=== PATIENT | female | born 1935 | race Caucasian/White ===

== ENCOUNTER → 2023-08-04 13:31 | Outpatient (REF) | payer OTHER, SELFPAY | LOC: DHCBC HW 13:31 | PROVIDERS: ATTENDING PHYSICIAN Internal Medicine; FAMILY PHYSICIAN Family Medicine | DX: I50.22 Chronic systolic (congestive) heart failure (principal); I25.10 Atherosclerotic heart disease of native coronary artery without angina pectoris; I42.8 Other cardiomyopathies | CPT/HCPCS: 93306 ==

== ENCOUNTER 2023-08-27 23:55 | Inpatient (IN) | payer OTHER, SELFPAY ==
[2023-08-27 21:41] VITALS: BP 132/54
[2023-08-27 21:59] LABS: % Basophils 0.3 % (0-2); % Eosinophils 0.2 % (0-6); % Lymphocytes 11.1 % (20.5-51.1); % Monocytes 7.4 % (1.7-9.3); Absolute Immature Granulocytes 0.1 10^3/uL (0-0.05); Absolute Lymphocytes 1.2 10^3/uL (1.2-3.4); Absolute Monocytes 0.8 10^3/uL (0.1-0.6); Absolute Neutrophils 8.6 10^3/uL (1.4-6.5); Hematocrit 34.5 % (37.0-47.0); Hemoglobin 12.1 g/dL (12.0-16.0); Mean Corp Hgb Conc. 35.1 g/dL (33.0-37.0); Mean Corpuscular Hgb 28.8 pg (27.0-31.0); Mean Corpuscular Volume 82.1 fL (81.0-99.0); Nucleated Red Blood Cells % 0 %; Platelet Count 299 10^3/uL (130-400); Red Cell Dist. Width 13.2 % (11.5-14.5); White Blood Cell Count 10.7 10^3/uL (4.8-10.8)
[2023-08-27 22:17] LABS: ALT (SGPT) 61 U/L (0-35); AST (SGOT) 37 U/L (14-36); Albumin 3.6 g/dl (3.5-5.0); Alkaline Phosphatase 130 U/L (38-126); Blood Urea Nitrogen 32 mg/dl (7-17); Calcium 9.5 mg/dl (8.4-10.2); Carbon Dioxide 25 mmol/L (22-30); Chloride 100 mmol/L (98-107); Glucose 219 mg/dl (70-99); Lipase 370 U/L (23-300); Potassium 4.1 mmol/L (3.5-5.1); Sodium 132 mmol/L (135-145); Total Bilirubin 0.7 mg/dl (0.2-1.3); eGFR > 60.00
--- NOTE | 2023-08-27 23:26 | ED.GENMED ---
History of Present Illness
General
Chief Complaint: Abdominal Symptoms
Source: patient and family
Exam Limitations: none
Time Seen by Provider: 08/27/23 23:11
Nursing documentation reviewed up to this point in time: agreed with
Travel History
Have you had any contact with someone who has COVID-19?: No
Do you have any symptoms of coronavirus? Fever > 100 degrees, chills, cough, shortness of breath, sore throat, loss of taste or smell, muscle aches, or headache?: No
History of Present Illness
History of Present Illness:
87-year-old female presents emergency department complaining of nausea and vomiting throughout the day, episodes of coffee-ground emesis at home. Patient takes Eliquis for atrial fibrillation. Denies any abdominal pain.
Past History
Past History
ED Past Medical History: Arrthythmia, CHF, HTN, Hypercholesterolemia and NIDDM
ED Past Surgical History: Gynecological (MARIA C) and Other (bilateral knee replacement)
Social History
Tobacco: Non-smoker
Alcohol: Occasional
Drug: None
Personal:
Living: with family
Employment: Retired
Family History
Family History: Other (Noncontributory)
Review of Systems
Review of Systems
Allergies reviewed?: Yes
All Other Systems: Not applicable
Constitutional: Reports no symptoms
EENT: Reports no symptoms
Respiratory: Reports no symptoms
Cardiac: Reports no symptoms
ABD/GI: Reports vomiting and other (Coffee-ground emesis); Denies abdominal pain
: Reports no symptoms
Musculoskeletal: Reports no symptoms
Skin: Reports no symptoms
Neurological: Reports no symptoms
Endocrine: Reports no symptoms
Hematologic/Lymphatic: Reports no symptoms
Psychiatric: Reports no symptoms
Phy Exam
Physical Exam
Physical Exam:
Physical Exam
General: Afebrile
Neck: supple. no meningeal signs. normal posterior pharynx
Heart: s1/s2 regular rate and rhythm, no murmur. equal radial
pulses.
HEENT: Pupils equal round reactive to light, EOMI
Lungs: no acute respiratory distress. clear bilaterally
Abdomen: normal bowel sounds. not tender. no CVAT, rectal exam guaiac positive brown stool
Neuro: alert and oriented. no focal neurological deficits cranial nerves II through XII intact
Skin: no rash
Psychiatric: well kept. interactive and cooperative
Extremities: no edema. no calf tenderness. negative homans. good distal pulses
Course
Orders/Labs/Results
Orders:
Orders
08/27/23 21:53
Type+Screen Urgent
Complete Blood Count/With Diff Urgent
Comprehensive Metabolic Panel Urgent
Lipase Urgent
Abnormal Lab Results
08/27/23
21:53
Hct 34.5 L %
(37.0-47.0)
Abs Immat Gran (auto) 0.1 H 10^3/uL
(0-0.05)
Absolute Neuts (auto) 8.6 H 10^3/uL
(1.4-6.5)
Absolute Monos (auto) 0.8 H 10^3/uL
(0.1-0.6)
Immature Gran % 1.0 H %
(0-0.5)
Neutrophils % 80.0 H %
(42.2-75.2)
Lymphocytes % 11.1 L %
(20.5-51.1)
Sodium 132 L mmol/L
(135-145)
BUN 32 H mg/dl
(7-17)
Glucose 219 H mg/dl
(70-99)
AST 37 H U/L
(14-36)
ALT 61 H U/L
(0-35)
Alkaline Phosphatase 130 H U/L
(38-126)
Total Protein 6.0 L g/dl
(6.3-8.2)
Lipase 370 H U/L
(23-300)
08/27/23 21:53
08/27/23 21:53
Vital Signs
Initial and Last Documented VS:
Initial Vital Signs
Temp Pulse Resp BP Pulse Ox
98.3 F 69 20 132/54 97
08/27/23 21:41 08/27/23 21:41 08/27/23 21:41 08/27/23 21:41 08/27/23 21:41
Last Documented Vital Signs
Temp Pulse Resp BP Pulse Ox
98.3 F 69 20 132/54 97
08/27/23 21:41 08/27/23 21:41 08/27/23 21:41 08/27/23 21:41 08/27/23 21:41
MDM/Problems Addressed
Differential Diagnosis Includes:
Upper GI bleed, bleeding gastric ulcer
MDM/Problems Addressed:
87-year-old female with coffee-ground emesis, likely due to upper GI bleed. Had episode of normal-appearing emesis in the ED. Guaiac positive brown stool in the ED. Will start Protonix and give Zofran. Admit to hospitalist.
Chronic conditions affecting care: Arrhythmia
Acute Exacerbation and/or Progression of Chronic Illness: Arrhythmia
*Pulse Oximetry
Patient hypoxic: no
*EKG
Interpreted by ED Provider?: NA
*Diesel Fitter Mechanic Interpretation
Rate: Diesel Fitter Mechanic- N/A
*Critical Care Note
Total Time (30-74mins, 75-104mins- exclusive of procedures): Not Applicable
Data Reviewed
Review of Other/Old Records Reveals: Labs (Prior BUN 17 on 03/02/2023, prior hemoglobin 9.2 on 03/02/2023)
Source: records
Patient Management
Social determinants of health affecting care: Living situation
Discussion with other providers: Hospitalist
Escalation/DeEscalation of care consider admission/obs:
Admit not indicated
ED Attending Note
-
Portions of this chart may have been created with voice recognition software.� Occasional wrong word or��sound alike� substitutions may have occurred due to the inherent limitations of voice recognition software.
Discharge Plan
Departure
Patient Disposition: Admit
Date of Disposition: 08/27/23
Time of Disposition: 23:26
Admit to: IMU
Presentation/result/management discussed w/ accepting MD/DO: Hospitalist
Patient with high blood pressure during this ER visit?: Yes
Condition: Good
Discharge Problem:
Acute upper gastrointestinal bleeding
Prescriptions:
No Action
metformin 1,000 MG tablet
1,000 mg PO BID@0800,1700
Hold Instructions: discuss restarting with your doctors
metoprolol succinate 50 MG tablet extended release 24 hr
50 mg PO HS
torsemide 20 mg Tablet
20 mg PO DAILY Qty: 30 0RF
atorvastatin 10 MG tablet
10 mg PO QPM Qty: 30 0RF
Januvia 100 mg Tablet
100 mg PO DAILY Qty: 0 0RF
amiodarone [Pacerone] 200 mg Tablet
200 mg PO DAILY Qty: 0 0RF
Eliquis 5 mg tablet
2.5 mg PO BID
Interventions
Interventions:
*Risk Screen - Suicide Last Done: 08/27/23 21:41
*General Assessment Last Done: 08/27/23 21:41
[2023-08-27 23:35] VITALS: BMI 21.3
[2023-08-27 23:39] VITALS: BP 141/57
[2023-08-27] MEDS: ZOFRAN 4 MG IV (23:43)
--- NOTE | 2023-08-27 23:49 | HPS.HSE ---
Addendum entered and electronically signed by Rajesh Gonzalez MD 08/28/23 00:11:
Current vomitus is muddy brown colored at ER
Not coffee ground
DDx; SBO vs ileus
- AXR
- cont. NPO
Original Note:
Family Physician
-
Family Physician:
Chief Complaint
-
Nausea and coffee ground emesis
History of Present Illness
87F HX Prx AF on Eliquis, [facility] HFrEF who pw acute nausea and vomiting.
Report vomitus is coffee ground like material.
Admission Hgb is 12. HX chr anemia range between 7s to 9s.
HX small BW perforation s/p Exploratory laparotomy with small-bowel resection with primary anastomosis and abdominal washout in Feb 2023.
Medical History
Past Medical History
Past Medical History: Reports Other
Additional Past Medical History:
Prx AF on chr AC
HX Cardiomyopathy LVEF 25-30 percent.
Pulmonary hypertension.
HX diastolic heart failure.
Moderate TR.
Moderate AI.
Hypertension, multidrug.
Atrial fibrillation on amiodarone and Xarelto.
Hypercholesterolemia
T2DM
Ambulatory dysfunction, chronic rolling walker use
Past Surgical History: Reports Other
Additional Past Surgical History:
MARIA C.
Bilateral knee replacements.
Social History
Unable to obtain full social history at this time due to: Other ( Born in [place]. Resides at home with her of 65 years)
Tobacco: Non-smoker
Alcohol: None
Personal:
Living: With Family
Family History
Family History: Not pertinent
Allergies / Home Medications
Allergies reflects when Allergies were last updated in [facility].
Home Medications with original date entered in [facility]
Allergy/Medication List:
Allergies
Allergy/AdvReac Type Severity Reaction Status Date / Time
No Known Allergies Allergy Verified 08/27/23 21:41
Home Medications
metformin 1,000 mg tablet 1,000 mg PO BID@0800,1700 Diabetes 03/20/21
metoprolol succinate 50 mg tablet,extended release 24 hr 50 mg PO HS Heart Failure 03/20/21
atorvastatin 10 mg tablet 10 mg PO QPM High cholesterol #30 tabs 01/14/23
torsemide 20 mg tablet 20 mg PO DAILY Fluid retention/Swelling #30 tabs 01/14/23
amiodarone 200 mg tablet (Pacerone) 200 mg PO DAILY #0 tabs 03/02/23
apixaban 5 mg tablet (Eliquis) 2.5 mg PO BID Blood clot prevention/tx 08/27/23
potassium chloride 20 mEq tablet,extended release 20 meq PO DAILY 08/27/23
prednisone 10 mg tablet 10 mg PO DIRECTED 08/27/23
prednisone 2.5 mg tablet 7.5 mg PO Q OTHER DAY 08/27/23
Review of Systems
-
Constitutional: Reports No Symptoms
EENT: Reports No Symptoms
Respiratory: Reports No Symptoms
Cardiac: Reports No Symptoms
Abdomen/GI: Reports Nausea and Vomiting (coffee ground emesis)
: Reports No Symptoms
Musculoskeletal: Reports No Symptoms
Skin: Reports No Symptoms
Neurological: Reports No Symptoms
Endocrine: Reports No Symptoms
Hematologic/Lymphatic: Reports No Symptoms
Psych: Reports No Symptoms
Physical Exam
Vital Signs
Vital Signs
Temp Pulse Resp BP Pulse Ox
98.3 F 63 22 141/57 95
08/27/23 21:41 08/27/23 23:39 08/27/23 23:39 08/27/23 23:39 08/27/23 23:39
Physical Exam
General: No Apparent Distress and Conversant
HEENT: NormoCephalic, Anicteric and Moist mucous membranes
Respiratory: Clear; No Wheezes, Rales or Rhonchi
Cardiac: S1/S2 and Regular Rhythm
GI: Soft, Non Tender and Non Distended
Rectal: Brown (HoB POS brown stool )
Genito-urinary: Deferred by me
Musculoskeletal: Edema, Left Lower Extremity (chronic ), Edema, Right Lower Extremity (chronic ) and Other (Lt Leg > Rt leg edema - chonic )
Skin: Warm
Neuro: AO x 3
Psych: Calm and Intact Judgment/Insight
Laboratory Results
-
08/27/23 21:53
08/27/23 21:53
Laboratory Results
Total Bilirubin 0.7 mg/dl (0.2-1.3) 08/27/23 21:53
AST 37 U/L (14-36) H 08/27/23 21:53
ALT 61 U/L (0-35) H 08/27/23 21:53
Alkaline Phosphatase 130 U/L (38-126) H 08/27/23 21:53
Lipase 370 U/L (23-300) H 08/27/23 21:53
Data Reviewed
-
Lab Data: Labs Reviewed by me
Old Records: Reviewed
Impression/Plan
-
Reviewed VS: hemodynamically stable
Data
WCC 10.7
Hgb 12.1 - was 9.2 on 03/02/23
Plt 299
Na 132
BUN 32
GFR > 60
BG 220
AST 37 ALT 61 AKP 130 Lipase 370
08/04/23 ECHO
Moderately reduced LVEF 40%.
Global hypokinesis.
Aortic sclerosis without stenosis.
Moderate AR
Compared to 01/08/23: LVEF has improved from 25-30% to 40%. MR has improved from moderate to mild. PASP has improved from 41 mmHg to 26 mmHg.
Last hospitalist admission: 02/15/23 - 03/02/23
P Dx :
1. small BW perforation s/p Exploratory laparotomy with small-bowel resection with primary anastomosis and abdominal washout.
2. Postoperative ileus.
3. Acute left upper extremity PICC line-associated DVT
4. Acute on chronic HFrEF
5. Anasarca.
6. Hyponatremia.
7. VANESSA on CKD 3B.
8. Paroxysmal aAF
ASSESSMENT & PLAN
Acute coffee ground emesis vs Ileus - Current vomitus is mud like colored brown
POS HoB brown stool per SR attd
Hemodynamically stable
Current Hgb 12 seems like hemoconcentrated
HX Chr anemia - last Hgb was 9.2 in Feb 2023
- Held Eliquis
- PPI gtt
- NPO and IVF
- T & S
- Blood consented and scanned at ER
- f/u H H q6h
- GI consult
Known HX
Prx AF : cont amiodarone, held Eliquis due to GIB
HX NICM with last LVEF 40 in Jul 2023; Held Metoprolol due to acute GIB nd at risk for hypotension
Pulmonary hypertension.
HX chr HFrEF : Held Trosemide
Moderate TR. Moderate AI.
Hypertension
Hypercholesterolemia; Held statin
T2DM: Held Metformin and Sitagliptin. Add ISS low
Ambulatory dysfunction, chronic rolling walker use
DVT Px: SCD
Code: Full
IP TLM
[2023-08-28] VITALS (9 sets, daily range): BP systolic 133–157; BP diastolic 58–74; PULSE 63–103; BMI 21.3
[2023-08-28] MEDS: PROTONIX IV 80 MG IV (00:45)
[2023-08-28] MEDS: NSS 250 IV (00:45)
[2023-08-28] MEDS: PROTONIX 100 IV ×3 (00:50→18:36)
--- NOTE | 2023-08-28 02:00 | PTCARENOTE ---
Pt. admitted through E.D., AAO x 3, vs stable, NSR on monitor, pt. is a fall risk, bed alarm placed, call renner within reach.
[2023-08-28] MEDS: NSS 1000 IV ×2 (03:00→16:18)
[2023-08-28] MEDS: ZOFRAN 4 MG IV ×2 (05:33→22:20)
[2023-08-28 06:37] LABS: Hemoglobin 11.3 g/dL (12.0-16.0)
[2023-08-28 07:00] LABS: Blood Urea Nitrogen 35 mg/dl (7-17); Calcium 9.2 mg/dl (8.4-10.2); Carbon Dioxide 27 mmol/L (22-30); Chloride 101 mmol/L (98-107); Estimated Creatinine Clearance 30 ml/min; Glucose 215 mg/dl (70-99); Potassium 4.4 mmol/L (3.5-5.1); Sodium 134 mmol/L (135-145); eGFR 54.53
[2023-08-28 08:10] LABS: Glucose - Point of Care 225 mg/dl (70-99)
[2023-08-28] MEDS: PACERONE 200 MG PO (09:04)
[2023-08-28 09:31] LABS: Glycohemoglobin (HgbA1c) 7.6 % (4.0-5.6)
[2023-08-28] MEDS: NOVOLOG FLEXPEN-LOW RESISTANCE 2 UNITS SC ×2 (09:32→12:38)
[2023-08-28 10:32] LABS: ALT (SGPT) 56 U/L (0-35); AST (SGOT) 33 U/L (14-36); Albumin 3.3 g/dl (3.5-5.0); Alkaline Phosphatase 117 U/L (38-126); Direct Bilirubin 0.1 mg/dl (0.0-0.4); Total Bilirubin 0.6 mg/dl (0.2-1.3); Total Protein 5.5 g/dl (6.3-8.2)
--- NOTE | 2023-08-28 11:20 | CON.GI ---
Addendum entered and electronically signed by Terrence Gonzalez MD 08/28/23 13:55:
I saw and examined the patient.
The SPEECH THERAPY ASSISTANT or PA's note was reviewed and I agree with the note.
Comment: 87yo female admitted with n/v. She had BM yesterday, but no BM or flatus since then. OBS series shows constipation but no obstruction. She was admitted for SB perforation due to diverticulum and had ex lap and SB resection in February
2022. No problems after the surgery reported. Vomitus was dark brown and foul smelling
REC:
Getting milk and molasses enema
Await resumption of bowel function
If further vomiting, place NGT for decompression
Consider follow up OBS series or CT scan if not improving
Likely ileus, PSBO possibly related to adhesions
Original Note:
Consultation
-
Date/Time Consultation Requested: 08/28/23 0203
Date/Time Consultation Performed: 08/28/23 1125
Requesting Provider: Dr. Gonzalez
Performing Provider: Dr. Gonzalez/JANAY Byrne
Reason for Consultation: nausea/coffee ground emesis
Medical History
Chief Complaint / HPI
Chief Complaint: n/v
History of Present Illness:
87-year-old female with past medical history of hypertension, hyperlipidemia, diabetes, paroxysmal A-fib currently on Eliquis last dose 08/27/2023 am, CHF, small bowel perforation from small bowel diverticulum with ex lap and small bowel resection
with primary anastomosis and abdominal washout in February 2023 who presents to the emergency room with acute episodes of nausea and vomiting. Asked to evaluate for the same as well as brown vomitus. The patient states that she took her last dose
of Eliquis yesterday morning. Patient is also on Prednisone every other day for unknown inflammatory process. She ate breakfast which consisted of cornflakes and a half a banana. She states that yesterday afternoon approximately 3 PM she had acute
onset of nausea and vomiting. She states that she vomited a large amount of thick brown liquid which was foul-smelling. She then had a second episode again with brown thick smelling foul vomitus. At that point she came to the emergency room. She
states she had another episode there and another small episode overnight. She is now having abdominal cramping which she did not have prior. She states she did have a large formed brown bowel movement in the toilet yesterday. She is not passing
flatus. She is not having any belching. The patient denies any fevers, chills, melena, hematochezia, dysphagia or odynophagia. She denies any early satiety or unintentional weight loss. She denies eating anything raw, spoiled. She denies any
recent sick contacts. She denies any recent travel. She denies any changes in medications. Abdominal x-ray from today shows moderate amount of gas in nondilated loops of bowel. No bowel dilatation to suggest obstruction. No free intraperitoneal
air. Sutures present in mid abdomen and pelvis. Large amount of feces throughout colon and rectum suggesting possible constipation. Patient's WBC is 10.7, hemoglobin is 11.3 down from 12.1, sodium 134, potassium 4.4, BUN 35, glucose 215, calcium
9.2 total bilirubin 0.6, direct bili 0.1, AST 33 down from 37, ALT 56 down from 61, alk phos 117 down from 130, lipase 370. Rectal exam performed in the ER was brown stool but was OB positive. Patient had episode of normal appearing emesis in the ER
per records.
Past Medical History
Past Medical History: Arrhythmias (Afib), CHF, HTN, Hypercholesterolemia, NIDDM and Other (Small bowel perforation from small bowel diverticulum, pulm HTN)
Past Surgical History: Other (open abd hysterectomy, ex lap and small bowel resection with primary anastomosis and abdominal washout in February 2023)
Social History
Tobacco: Non-Smoker
Alcohol: None
Drug: None
Personal:
Living: With Family
Family History
Family History: Other (no family history gastrointestinal malignancies or IBD)
Allergies / Home Medications
Allergy/AdvReac Type Severity Reaction Status Date / Time
No Known Allergies Allergy Verified 08/27/23 21:41
Medication Instructions Recorded
metformin 1,000 mg tablet 1,000 mg PO BID@0800,1700 Diabetes 03/20/21
metoprolol succinate 50 mg 50 mg PO HS Heart Failure 03/20/21
tablet,extended release 24 hr
atorvastatin 10 mg tablet 10 mg PO QPM High cholesterol #30 01/14/23
tabs
torsemide 20 mg tablet 20 mg PO DAILY Fluid 01/14/23
retention/Swelling #30 tabs
amiodarone 200 mg tablet (Pacerone) 200 mg PO DAILY #0 tabs 03/02/23
apixaban 5 mg tablet (Eliquis) 2.5 mg PO BID Blood clot 08/27/23
prevention/tx
potassium chloride 20 mEq 20 meq PO DAILY Electrolyte 08/27/23
tablet,extended release Repletion
prednisone 10 mg tablet 10 mg PO DIRECTED 08/27/23
prednisone 2.5 mg tablet 7.5 mg PO Q OTHER DAY 08/27/23
Review of Systems
-
All other systems: A 12 pt ROS was Negative except as stated above in HPI
Vital Signs
Temp Pulse Resp BP Pulse Ox
97.9 F 63 16 155/63 96
08/28/23 07:30 08/28/23 09:04 08/28/23 07:30 08/28/23 09:04 08/28/23 07:30
Physical Exam
Exam
General: No Apparent Distress
HEENT: Anicteric
Respiratory: Clear
Cardiac: Irregular Rhythm
GI: Soft, Non Tender, Non Distended and Distended (mildly distended)
Rectal: Hem Positive (brown OB pos stool per ER)
Skin: Warm and Dry
Neuro: AO x 3
Psych: Calm
Results
WBC 10.7 10^3/uL (4.8-10.8) 08/27/23 21:53
Hgb 11.3 g/dL (12.0-16.0) L 08/28/23 05:56
Hct 32.0 % (37.0-47.0) L 08/28/23 05:56
MCV 82.1 fL (81.0-99.0) 08/27/23 21:53
Plt Count 299 10^3/uL (130-400) 08/27/23 21:53
Absolute Neuts (auto) 8.6 10^3/uL (1.4-6.5) H 08/27/23 21:53
Sodium 134 mmol/L (135-145) L 08/28/23 05:56
Potassium 4.4 mmol/L (3.5-5.1) 08/28/23 05:56
Chloride 101 mmol/L (98-107) 08/28/23 05:56
Carbon Dioxide 27 mmol/L (22-30) 08/28/23 05:56
BUN 35 mg/dl (7-17) H 08/28/23 05:56
Creatinine 1.0 mg/dL (0.6-1.0) 08/28/23 05:56
Calcium 9.2 mg/dl (8.4-10.2) 08/28/23 05:56
Total Bilirubin 0.6 mg/dl (0.2-1.3) 08/28/23 05:56
AST 33 U/L (14-36) 08/28/23 05:56
ALT 56 U/L (0-35) H 08/28/23 05:56
Alkaline Phosphatase 117 U/L (38-126) 08/28/23 05:56
Lipase 370 U/L (23-300) H 08/27/23 21:53
Diagnostic Image Results:
Abd XR:
FINDINGS:
Supine and left lateral decubitus views of the abdomen were obtained
There is a moderate amount of gas in nondilated loops of bowel.
There is no bowel dilatation to suggest obstruction.
There is no free intraperitoneal air
Sutures are present in the mid abdomen and pelvis
There is thoracolumbar scoliosis with multilevel degenerative disc disease
There is moderate-large amount of feces throughout the colon and rectum suggesting possible constipation
Prior GI Procedures:
EGD: none
Colonoscopy:none
Assessment / Plan
-
87-year-old female with past medical history of hypertension, hyperlipidemia, diabetes, paroxysmal A-fib currently on Eliquis last dose 08/27/2023 am, CHF, small bowel perforation from small bowel diverticulum with ex lap and small bowel resection
with primary anastomosis and abdominal washout in February 2023 who presents to the emergency room with acute episodes of nausea and vomiting. Asked to evaluate for the same as well as brown vomitus. The patient states that she took her last dose
of Eliquis yesterday morning. Patient is also on Prednisone every other day for unknown inflammatory process. Abdominal x-ray from today shows moderate amount of gas in nondilated loops of bowel. No bowel dilatation to suggest obstruction. No
free intraperitoneal air. Sutures present in mid abdomen and pelvis. Large amount of feces throughout colon and rectum suggesting possible constipation. Patient's WBC is 10.7, hemoglobin is 11.3 down from 12.1, sodium 134, potassium 4.4, BUN 35,
glucose 215, calcium 9.2 total bilirubin 0.6, direct bili 0.1, AST 33 down from 37, ALT 56 down from 61, alk phos 117 down from 130, lipase 370. Rectal exam performed in the ER was brown stool but was OB positive. Patient had episode of normal
appearing emesis in the ER per records. Patient is currently on a Protonix drip. She has Zofran available to her. Milk molasses enema has already been ordered by medicine attending. The patient remains n.p.o. at this time.
Impression:
Nausea and Vomiting
Constipation on Imaging
OB positive Brown stool with possible coffee ground emesis?
Afib on Eliquis, last dose 08/27/23 am
Plan:
-NPO for now
-Continue Protonix gtt
-Continue Zofran prn
-Agree with Milk and Molasses Enema
-Trend CBC, BMP
-If with increased abd pain then obtain abdominal imaging to r/o obstruction
-Further recommendations about Endoscopic procedures to be fothcoming
Data Reviewed
-
Radiology: Report Reviewed by me
Old Records: Reviewed
-
-
Thank you for consultation and allowing me to participate in the patient's care. Please call the monotypist GI physician during the after hours with any questions or concerns.
[2023-08-28 12:31] LABS: Glucose - Point of Care 207 mg/dl (70-99)
--- NOTE | 2023-08-28 14:49 | W.PN.HOSP.TC ---
Today's Communication/Plan
-
Enema
NPO till she has a bowel movement and feels better in terms of vomiting
Medicines restarted
Assessment / Plan
Assessment / Plan
87-year-old female on Eliquis admitted with nausea vomiting
Feels okay. Patient was getting enema
No abdominal pain
Cardiovascular system S1-S2 appreciated
Chest clear to auscultation
Abdomen soft slightly distended
If continues to have vomiting may need NG tube/obstruction series
# Coffee-ground vomitus likely secondary to ileus
Constipation , hold Eliquis
Give enema
# History of small bowel perforation with ex small bowel resection with primary anastomosis and abdominal washout February 2023
# Mild hyponatremia-likely hypovolemic
# Elevated LFTs-follow
# Slightly elevated lipase-likely secondary to small bowel obstruction
# Paroxysmal atrial fibrillation on Eliquis and metoprolol as outpatient
Also on amiodarone 200 mg daily
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
Echo 08/04/2023-moderately reduced ejection fraction 40%. Global hypokinesis. Aortic sclerosis without stenosis. Moderate AI
On metoprolol, torsemide as outpatient
# Pulmonary hypertension
# Valvular heart disease-moderate TR, moderate AI
# Multidrug-resistant hypertension
Was on metoprolol
# CKD stage III
# Hyperlipidemia-patient was on atorvastatin
# Diabetes-was on metformin thousand twice daily
Check hemoglobin A1c
Accu-Cheks and sliding scale coverage
# Left upper extremity PICC line associated DVT in the past
# Ambulatory dysfunction-uses a walker
Spinal stenosis
# Migraines
# DVT prophylaxis
# Full code
D/W RN
D/W GI
Unclear why she is on prednisone
Called . Went to message. Left message
Anticipated Discharge: 24 - 48 hours
Subjective/Interval History
-
Date of Service: August 28, 2023
Objective Data
-
Labs:
Laboratory Results
08/28/23
05:56
Hgb 11.3 L
Hct 32.0 L
Sodium 134 L
Potassium 4.4
Chloride 101
Carbon Dioxide 27
BUN 35 H
Creatinine 1.0
Glucose 215 H
Calcium 9.2
Total Bilirubin 0.6
AST 33
ALT 56 H
Alkaline Phosphatase 117
Vital Signs:
Vital Signs
Temp Pulse Resp BP Pulse Ox
97.9 F 69 14 143/61 94
08/28/23 11:35 08/28/23 11:35 08/28/23 11:35 08/28/23 11:35 08/28/23 11:35
I&O
08/27/23 08/28/23 08/29/23
06:59 06:59 06:59
Intake Total 120 / 120
Balance 120 / 120
[2023-08-28 16:58] LABS: Glucose - Point of Care 178 mg/dl (70-99)
[2023-08-28] MEDS: NOVOLOG FLEXPEN-LOW RESISTANCE 300 UNITS SC (17:54)
[2023-08-28] MEDS: LIPITOR 10 MG PO (17:54)
[2023-08-28] MEDS: DELTASONE 5 MG PO (18:40)
[2023-08-28] MEDS: TOPROL XL 50 MG PO (21:13)
[2023-08-28 21:30] LABS: Glucose - Point of Care 182 mg/dl (70-99)
[2023-08-29 03:00] VITALS: BP 124/49
[2023-08-29] MEDS: NSS 1000 IV (03:05)
[2023-08-29] MEDS: PROTONIX 100 IV ×2 (05:18→15:39)
[2023-08-29 05:59] LABS: Hematocrit 29.3 % (37.0-47.0); Hemoglobin 10.4 g/dL (12.0-16.0); Mean Corp Hgb Conc. 35.5 g/dL (33.0-37.0); Mean Corpuscular Hgb 29.5 pg (27.0-31.0); Mean Corpuscular Volume 83.2 fL (81.0-99.0); Platelet Count 239 10^3/uL (130-400); Red Blood Cell Count 3.52 10^6/uL (4.20-5.40); Red Cell Dist. Width 13.4 % (11.5-14.5)
[2023-08-29 06:00] VITALS: BMI 19.8
[2023-08-29 06:27] LABS: ALT (SGPT) 51 U/L (0-35); AST (SGOT) 33 U/L (14-36); Albumin 2.8 g/dl (3.5-5.0); Alkaline Phosphatase 94 U/L (38-126); Blood Urea Nitrogen 37 mg/dl (7-17); Calcium 8.7 mg/dl (8.4-10.2); Carbon Dioxide 25 mmol/L (22-30); Chloride 103 mmol/L (98-107); Direct Bilirubin 0.1 mg/dl (0.0-0.4); Estimated Creatinine Clearance 30 ml/min; Glucose 166 mg/dl (70-99); Potassium 3.9 mmol/L (3.5-5.1); Sodium 137 mmol/L (135-145); Total Bilirubin 0.9 mg/dl (0.2-1.3); Total Protein 4.9 g/dl (6.3-8.2); eGFR 54.53
[2023-08-29 06:54] LABS: TSH < 0.02 uIU/ml (0.47-4.68)
[2023-08-29 07:42] VITALS: BP 155/65
[2023-08-29 07:54] LABS: Glucose - Point of Care 172 mg/dl (70-99)
[2023-08-29] MEDS: ZOFRAN 4 MG IV (09:25)
[2023-08-29] MEDS: DELTASONE 10 MG PO (09:27)
[2023-08-29] MEDS: PACERONE 200 MG PO (09:31)
[2023-08-29] MEDS: NOVOLOG FLEXPEN-LOW RESISTANCE 1 UNITS SC ×2 (09:32→18:43)
--- NOTE | 2023-08-29 10:46 | CM ---
Reviewed the chart notes and spoke with the patient at the bedside. The patient resides with her spouse in a two story home with two steps to enter. The patient has a rolling walker, wheelchair, shower chair, and shower grab bar. The patient is
current with [facility] and has been to [facility] in the past. The patient confirmed her pharmacy of choice is the [facility]. The patient anticipates being discharged to home with resumption of [facility]. CM continues to be
available to patient/family and is monitoring medical plan for needs at discharge.
Plan: Discharge to home with resumption of VN services.
[2023-08-29 11:35] VITALS: BP 126/52
[2023-08-29 11:42] LABS: Glucose - Point of Care 220 mg/dl (70-99)
[2023-08-29] MEDS: NOVOLOG FLEXPEN-LOW RESISTANCE 2 UNITS SC (11:45)
--- NOTE | 2023-08-29 12:18 | PTCARENOTE ---
Assumed care of pt from previous nurse. Pt denies pain. Pt provided zofran for n/v, vomited x's 1 light brown emesis. Pt call renner is within reach, pt rings fabiano. will cont to monitor. Pt abdomen tender, soft, hypoactive bowel sounds.
[2023-08-29 13:19] VITALS: BMI 19.8
[2023-08-29 15:37] VITALS: BP 159/96
[2023-08-29 16:36] LABS: Glucose - Point of Care 176 mg/dl (70-99)
--- NOTE | 2023-08-29 16:36 | W.PN.GI.CBS2 ---
Today's Communication / Plan
-
Pt reports no BM/flatus
Hypoactive bowel sounds but present
BMs recorded as mucoid and liquid in chart
Check repeat OBS series to exclude evolving SBO given her recent surgery last fall for perforated diverticulum
Advance diet after bowel function resumes
Assessment / Plan
-
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
anastomosis and abdominal washout in February 2023 who presents to the emergency room with acute episodes of nausea and vomiting. Asked to evaluate for the same as well as brown vomitus. Patient is also on Prednisone every other day for unknown
inflammatory process. Abdominal x-ray shows moderate amount of gas in nondilated loops of bowel. Large amount of feces throughout colon and rectum suggesting possible constipation. Rectal exam performed in the ER was brown stool but was OB
positive. Patient had episode of normal appearing emesis in the ER per records. Patient is currently on a Protonix drip. She has Zofran available to her. Milk molasses enema has already been ordered by medicine attending. The patient remains
n.p.o. at this time.
08/28/23 AXR- moderate-large amount feces throughout colon and rectum.
Impression:
Nausea and Vomiting
Constipation on Imaging
OB positive Brown stool with possible coffee ground emesis?
Afib on Eliquis, last dose 08/27/23 am
Subjective
Subjective
Date of Service: August 29, 2023
No BM, no flatus. She had small amount of bilious emesis.
Objective
Data Reviewed
Laboratory Data:
Laboratory Results
08/29/23 05:42
08/29/23 05:42
Laboratory Results
Total Bilirubin 0.9 mg/dl (0.2-1.3) 08/29/23 05:42
AST 33 U/L (14-36) 08/29/23 05:42
ALT 51 U/L (0-35) H 08/29/23 05:42
Alkaline Phosphatase 94 U/L (38-126) 08/29/23 05:42
Lipase 370 U/L (23-300) H 08/27/23 21:53
Vital Signs and I&O:
Vital Signs
Temp Pulse Resp BP Pulse Ox
98.3 F 72 16 159/96 95
08/29/23 15:37 08/29/23 15:37 08/29/23 15:37 08/29/23 15:37 08/29/23 15:37
I&O
08/28/23 08/29/23 08/30/23
06:59 06:59 06:59
Intake Total 120 / 120 500 / 500
Output Total 200 / 200
Balance 120 / 120 300 / 300
Physical Exam
Physical Exam
GI: Soft, Non Distended, Tender and Normal Bowel Sounds (hypoactive but present)
--- NOTE | 2023-08-29 16:37 | W.PN.HOSP.TC ---
Today's Communication/Plan
-
X-ray of the abdomen to r/o obstruction
Will give mag citrate if neg
If not may need another enema
Assessment / Plan
Assessment / Plan
87-year-old female on Eliquis admitted with nausea vomiting
No abdominal pain
Cardiovascular system S1-S2 appreciated
Chest clear to auscultation
Abdomen soft slightly distended
# Coffee-ground vomitus likely secondary to ileus
Constipation , hold Eliquis
Not much luck with enema
X-ray of the abdomen.
If no obstruction we will try mag citrate
# Mild hyponatremia-likely hypovolemic. Better
# Elevated LFTs-follow
# Slightly elevated lipase not related to pancreatitis
# Paroxysmal atrial fibrillation on Eliquis and metoprolol as outpatient
Also on amiodarone 200 mg daily
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
Echo 08/04/2023-moderately reduced ejection fraction 40%. Global hypokinesis. Aortic sclerosis without stenosis. Moderate AI
On metoprolol, torsemide as outpatient
# Low TSH. Repeat TSH with reflex to T4
# Patient is on prednisone for a skin disease-type unclear
# Pulmonary hypertension
# Valvular heart disease-moderate TR, moderate AI
# Multidrug-resistant hypertension
Was on metoprolol
# CKD stage III
# Hyperlipidemia-patient was on atorvastatin
# Diabetes-was on metformin thousand twice daily
Hemoglobin A1c 7.6
Accu-Cheks and sliding scale coverage

# History of small bowel perforation with ex small bowel resection with primary anastomosis and abdominal washout February 2023
# Pulmonary hypertension
# Valvular heart disease-moderate TR, moderate AI
# Left upper extremity PICC line associated DVT in the past
# Ambulatory dysfunction-uses a walker
Spinal stenosis
# Migraines
# Hypoalbuminemia
# DVT prophylaxis
# Full code
D/W RN
Discussed with at bedside
Anticipated Discharge: 24 - 48 hours
Subjective/Interval History
-
Date of Service: August 29, 2023
Objective Data
-
Labs:
Laboratory Results
08/29/23
05:42
WBC 9.0
Hgb 10.4 L
Hct 29.3 L
Plt Count 239 D
Sodium 137
Potassium 3.9
Chloride 103
Carbon Dioxide 25
BUN 37 H
Creatinine 1.0
Glucose 166 H
Calcium 8.7
Total Bilirubin 0.9
AST 33
ALT 51 H
Alkaline Phosphatase 94
Vital Signs:
Vital Signs
Temp Pulse Resp BP Pulse Ox
98.3 F 72 16 159/96 95
08/29/23 15:37 08/29/23 15:37 08/29/23 15:37 08/29/23 15:37 08/29/23 15:37
I&O
08/28/23 08/29/23 08/30/23
06:59 06:59 06:59
Intake Total 120 / 120 500 / 500
Output Total 200 / 200
Balance 120 / 120 300 / 300
[2023-08-29] MEDS: LIPITOR 10 MG PO (18:54)
[2023-08-29 20:00] VITALS: BP 153/60
[2023-08-29 21:52] LABS: Glucose - Point of Care 214 mg/dl (70-99)
[2023-08-29] MEDS: TOPROL XL 50 MG PO (22:01)
[2023-08-29] MEDS: CITROMA 300 ML PO (22:01)
--- NOTE | 2023-08-29 23:18 | PTCARENOTE ---
Pt given Mg citrate and vomited it soon afterwards. Pt seemed to have drank it to fast.
[2023-08-29 23:23] VITALS: BP 151/61
[2023-08-30 00:10] LABS: Glucose - Point of Care 209 mg/dl (70-99)
[2023-08-30] MEDS: NOVOLOG FLEXPEN-LOW RESISTANCE 2 UNITS SC ×3 (00:13→17:36)
[2023-08-30] MEDS: PROTONIX 100 IV (02:34)
[2023-08-30] MEDS: NSS 1000 IV ×2 (02:36→16:59)
[2023-08-30 02:53] VITALS: BP 149/57
[2023-08-30 05:57] VITALS: BMI 19.8
[2023-08-30 06:46] LABS: Glucose - Point of Care 206 mg/dl (70-99)
[2023-08-30 07:28] LABS: Hemoglobin 10.8 g/dL (12.0-16.0); Mean Corp Hgb Conc. 34.8 g/dL (33.0-37.0); Mean Corpuscular Hgb 29.5 pg (27.0-31.0); Mean Corpuscular Volume 84.7 fL (81.0-99.0); Mean Platelet Volume 9.2 fL (7.4-10.4); Platelet Count 257 10^3/uL (130-400); Red Blood Cell Count 3.66 10^6/uL (4.20-5.40); Red Cell Dist. Width 13.6 % (11.5-14.5); White Blood Cell Count 9.3 10^3/uL (4.8-10.8)
[2023-08-30 07:51] VITALS: BP 140/54
[2023-08-30 07:58] LABS: Blood Urea Nitrogen 47 mg/dl (7-17); Calcium 8.8 mg/dl (8.4-10.2); Carbon Dioxide 23 mmol/L (22-30); Chloride 104 mmol/L (98-107); Estimated Creatinine Clearance 25 ml/min; Glucose 204 mg/dl (70-99); Potassium 3.3 mmol/L (3.5-5.1); Sodium 141 mmol/L (135-145); eGFR 43.81
[2023-08-30 08:17] LABS: TSH Reflex To Free T4 < 0.02 uIU/ml (0.47-4.68)
[2023-08-30 08:44] LABS: Free T4 4.16 ng/dl (0.78-2.19)
[2023-08-30] MEDS: MIRALAX 17 GRAMS PO (09:19)
[2023-08-30] MEDS: PACERONE 200 MG PO (09:19)
[2023-08-30] MEDS: COLACE 100 MG PO (09:19)
[2023-08-30] MEDS: SENOKOT 8.59999999999999964 MG PO (09:20)
[2023-08-30 11:22] LABS: Glucose - Point of Care 197 mg/dl (70-99)
[2023-08-30] MEDS: NOVOLOG FLEXPEN-LOW RESISTANCE 1 UNITS SC (11:37)
[2023-08-30 11:38] VITALS: BP 141/68
--- NOTE | 2023-08-30 11:48 | PTCARENOTE ---
Pt given milk and molasses enema this am around 0930. Pt tolerated fairly well with return of a few pieces of formed stool. Ana Maria Goldman CONTRACTOR BUYER aware.
--- NOTE | 2023-08-30 12:02 | W.PN.GI.CBS2 ---
Addendum entered and electronically signed by Terrence Gonzalez MD 08/30/23 12:31:
I saw and examined the patient.
The TECHNICAL BUSINESS ANALYST or PA's note was reviewed and I agree with the note.
Comment: Had small output after enema
ABD soft NTND
OBS series- non-specific bowel gas pattern without signs of obstruction. Mild/moderate diffuse colonic stool burden
REC:
Try clears
Continue miralax BID, senna
Consider dulcolax suppository or PO next
Await return of bowel function
No signs of bleeding
Original Note:
Today's Communication / Plan
-
Clears
Increase bowel regimen
Assessment / Plan
-
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
anastomosis and abdominal washout in February 2023 who presents to the emergency room with acute episodes of nausea and vomiting. Asked to evaluate for the same as well as brown vomitus. Patient is also on Prednisone every other day for unknown
inflammatory process. Abdominal x-ray shows moderate amount of gas in nondilated loops of bowel. Large amount of feces throughout colon and rectum suggesting possible constipation. Rectal exam performed in the ER was brown stool but was OB
positive. Patient had episode of normal appearing emesis in the ER per records. Patient is currently on a Protonix drip. She has Zofran available to her. Milk molasses enema has already been ordered by medicine attending. The patient remains
n.p.o. at this time.
08/28/23 AXR- moderate-large amount feces throughout colon and rectum.
Impression:
Nausea and Vomiting
Constipation on Imaging
OB positive Brown stool with possible coffee ground emesis?
Afib on Eliquis, last dose 08/27/23 am
Plan:
-Continue bowel regimen, will increase MiraLAX to twice daily
-Start clear liquids
-Discussed with patient that if she develops any nausea to stop p.o. immediately notify nursing
-If with increased abdominal distention, bloating or pain will repeat imaging
Subjective
Subjective
Date of Service: August 30, 2023
Patient with milk of molasses enema with small amount of stool expulsion. Patient without any nausea or vomiting. She has not trialed any clear liquids as of yet. She is tolerating oral medications including MiraLAX. She denies any abdominal
pain.
Objective
Data Reviewed
Laboratory Data:
Laboratory Results
08/30/23 07:10
08/30/23 07:10
Laboratory Results
Total Bilirubin 0.9 mg/dl (0.2-1.3) 08/29/23 05:42
AST 33 U/L (14-36) 08/29/23 05:42
ALT 51 U/L (0-35) H 08/29/23 05:42
Alkaline Phosphatase 94 U/L (38-126) 08/29/23 05:42
Lipase 370 U/L (23-300) H 08/27/23 21:53
Vital Signs and I&O:
Vital Signs
Temp Pulse Resp BP Pulse Ox
97.9 F 88 16 141/68 96
08/30/23 11:38 08/30/23 11:38 08/30/23 11:38 08/30/23 11:38 08/30/23 11:38
I&O
08/29/23 08/30/23 08/31/23
06:59 06:59 06:59
Intake Total 500 / 500 1260 / 1260
Output Total 200 / 200 780 / 780
Balance 300 / 300 480 / 480
Physical Exam
Physical Exam
HEENT: Anicteric
Cardiology: Normal Sinus Rhythm
Pulmonary: Clear
GI: Soft, Non Distended, Non Tender and Normal Bowel Sounds (Hypoactive but present)
Neuro: Non Focal
--- NOTE | 2023-08-30 13:13 | PN.CDI ---
CDI
- -
CDI:
Physician Documentation Request
Admit Date: 08/27/23 23:55
Dear Doctor Ce,
Please review the following and provide your response in the progress notes.
Clinical Indicators:
- 08/28 Eyeglass Lens Cutter note indicates severe protein calorie malnutrition
- Unintentional weight loss >10% in 6 months
- Nutrient intake </=75% estimated need, >/= 1 month
Based on the information, which of the following most accurately represents the patient's nutritional status?
Severe protein calorie malnutrition
Other (please specify)
[place] Criteria ([facility] 2017)
2 or more criteria must be present for either
non severe or severe malnutrition
Note that the criteria differs related to the
presence of an acute or chronic illness
Acute Illness Chronic Illness
Energy Intake Non Severe: <75% for >7 days Non Severe: <75% for >1 month
Severe: <50% for >5 days Severe: <75% for >1 month
Weight Loss Non Severe: 1-2% over 1 week Non Severe: 5% over 1 month
5% over 1 month 7.5% over 3 months
7.5% over 3 months 10% over 6 months
1 year N/A 20% over 1 year
Severe: >2% over 1 week Severe: >5% over 1 month
>5% over 1 month >7.5% over 3 months
>7.5% over 3 months >10% over 6 months
1 year N/A >20% over 1 year
Body Fat Non Severe: Mild Decrease Non Severe: Mild Loss
Severe: Moderate Decrease Severe: Severe Loss
Muscle Mass Non Severe: Mild Decrease Non Severe: Mild Loss
Severe: Moderate Decrease Severe: Severe Loss
Fluid Accumulation Non Severe: Mild Accumulation Non Severe: Mild Accumulation
Severe: Moderate to severe Severe: Moderate to severe
accumulation accumulation
Reduced Vision Teacher Strength Non Severe: N/A Non Severe: N/A
Severe: Measurably reduced Severe: Measurably reduced
Additional criteria that can be used to Determine if Mild or Moderate Malnutrition ([employer]ck Manual 2018)
Mild Moderate Severe
Albumin gm/dl <3.0 gm/dl <2.5 gm/dl <2.0 gm/dl
Pre Albumin mg/dl <15 gm/dl <10 mg/dl <5.0 mg/dl
BMI <18.5 <17 <16
Use of terms such as suspected, likely, concern for, or probable (associated with a specific diagnosis that is being evaluated, monitored, or treated as if it exists) are acceptable and can be coded in the inpatient setting, when documented at the
time of discharge.
Thank you,
Megan Amezquita RN
CDI Specialist
Please use your independent medical judgment in providing your response.
[2023-08-30] MEDS: KCL 20 MEQ PO (13:32)
[2023-08-30] MEDS: NSS 500 IV (13:32)
[2023-08-30] MEDS: ZOFRAN 4 MG IV (13:38)
--- NOTE | 2023-08-30 14:37 | PTCARENOTE ---
Pt c/o nausea, vomited fecal smelling emesis. Zofran 4mg IV given at [address] Encinas aware and will continue to monitor.
--- NOTE | 2023-08-30 14:59 | W.PN.HOSP.TC ---
Addendum entered and electronically signed by Jeff Encinas MD 08/30/23 18:03:
Per start pt on prednisone 20 mg daily and methimazole 20 mg daily and see endo in 2 weeks.
Since NPO Give methimazole rectally .same dose.
Also steroids IV
will do Decadron 3 mg daily for now.
Original Note:
Today's Communication/Plan
-
Bowel regimen
Assessment / Plan
Assessment / Plan
87-year-old female on Eliquis admitted with nausea vomiting
No abdominal pain, Has nausea
Cardiovascular system S1-S2 appreciated
Chest clear to auscultation
Abdomen soft slightly distended
Obstruction status-retrocardiac airspace disease reflect atelectasis. Nonspecific bowel gas pattern without evidence of obstruction. Mild to moderate diffuse colonic stool burden
# Coffee-ground vomitus likely secondary to ileus
Constipation ,restart eliquis per discussion with GI
Had a small BM
Mag citrate given yesterday
One more enema given today
Continue bowel regimen
Vomited once. Some feculent smell per nursing however x-ray without any obstruction.
# Mild hyponatremia-likely hypovolemic. Resolved
# Hypokalemia-replace
# Elevated LFTs-follow
# Slightly elevated lipase not related to pancreatitis
# Abnormal thyroid function test-I have reached out to endocrinology to see if this needs treatment especially since patient is on amiodarone.
# Paroxysmal atrial fibrillation on Eliquis and metoprolol as outpatient
Also on amiodarone 200 mg daily
Continue metoprolol and Eliquis
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
Echo 08/04/2023-moderately reduced ejection fraction 40%. Global hypokinesis. Aortic sclerosis without stenosis. Moderate AI
On metoprolol, torsemide as outpatient-Hold Torsamide
# Hypertension-On metoprolol
# Hyperlipidemia-patient was on atorvastatin
# Diabetes-was on metformin thousand twice daily
Hemoglobin A1c 7.6
Accu-Cheks and sliding scale coverage
# VANESSA on CKD stage III

# Patient is on prednisone for Bullous Pemphigoid
10 mg alternating with 5 mg every other day
# Pulmonary hypertension
# Valvular heart disease-moderate TR, moderate AI
# History of small bowel perforation with ex small bowel resection with primary anastomosis and abdominal washout February 2023
# Pulmonary hypertension
# Valvular heart disease-moderate TR, moderate AI
# Left upper extremity PICC line associated DVT in the past
# Ambulatory dysfunction-uses a walker
Spinal stenosis
# Migraines
# Hypoalbuminemia
# DVT prophylaxis
# Full code
D/W RN
Discussed with at bedside
Discussed with GI
Left a message for endocrine
Anticipated Discharge: 24 - 48 hours
Subjective/Interval History
-
Date of Service: August 30, 2023
Objective Data
-
Labs:
Laboratory Results
08/30/23
07:10
WBC 9.3
Hgb 10.8 L
Hct 31.0 L
Plt Count 257
Sodium 141
Potassium 3.3 L
Chloride 104
Carbon Dioxide 23
BUN 47 H
Creatinine 1.2 H
Glucose 204 H
Calcium 8.8
Vital Signs:
Vital Signs
Temp Pulse Resp BP Pulse Ox
97.9 F 88 16 141/68 96
08/30/23 11:38 08/30/23 11:38 08/30/23 11:38 08/30/23 11:38 08/30/23 11:38
I&O
08/29/23 08/30/23 08/31/23
06:59 06:59 06:59
Intake Total 500 / 500 1260 / 1260
Output Total 200 / 200 780 / 780
Balance 300 / 300 480 / 480
--- NOTE | 2023-08-30 15:54 | W.PN.UPDATE ---
Update Note
Progress Note Update
Patient has been vomiting-vomited twice
Mild feculent smell to the vomitus
Given the x-ray does not show obstruction we will place an NG tube
Eliquis changed to heparin drip
Other medicines can be given and tube clamped
Discontinue metformin
IV hydration
We can try the Dulcolax rectal
[2023-08-30 15:55] VITALS: BP 156/63
--- NOTE | 2023-08-30 16:16 | CM ---
Chart reviewed and plan is to home when stable with spouse, will wait on PT/OT evaluations to assist with discharge planning for patient.
Plan; To follow with patient progress for discharge planning needs.
[2023-08-30 16:18] LABS: Hematocrit 32.3 % (37.0-47.0); Hemoglobin 11.2 g/dL (12.0-16.0); Mean Corp Hgb Conc. 34.7 g/dL (33.0-37.0); Mean Corpuscular Hgb 29.1 pg (27.0-31.0); Mean Corpuscular Volume 83.9 fL (81.0-99.0); Mean Platelet Volume 9.1 fL (7.4-10.4); Platelet Count 279 10^3/uL (130-400); Red Blood Cell Count 3.85 10^6/uL (4.20-5.40); Red Cell Dist. Width 13.5 % (11.5-14.5); White Blood Cell Count 9.3 10^3/uL (4.8-10.8)
--- NOTE | 2023-08-30 16:20 | PTCARENOTE ---
Addendum entered by Savi Barajas RN 08/30/23 19:46:
Pt also given a dulcolax suppository. No results yet.
Original Note:
Pt with continued vomiting of fecal smelling brown liquid. Dr Encinas was on the floor at the time and order placed for NGT to be inserted. #16 [place] sump inserted into pt's RT nares on 1st attempt without difficulty. Pt tolerated well and initial
amount of drainage removed was 1650ml. Pt states feeling so much better at this time. Will continue to monitor.
[2023-08-30] MEDS: HEPARIN 25000 UNITS/250 ML IV (16:54)
[2023-08-30] MEDS: DULCOLAX 10 MG RECTAL (16:58)
[2023-08-30] MEDS: LIPITOR PO (16:59)
[2023-08-30] MEDS: DELTASONE PO (16:59)
[2023-08-30 17:29] LABS: Glucose - Point of Care 208 mg/dl (70-99)
[2023-08-30 19:41] VITALS: BP 147/55
[2023-08-30] MEDS: TOPROL XL PO (22:25)
[2023-08-30] MEDS: MIRALAX PO (22:25)
[2023-08-30] MEDS: COLACE PO (22:25)
[2023-08-30] MEDS: PROTONIX PO (22:25)
[2023-08-30] MEDS: TAPAZOLE TUBE ×2 (22:26→22:36)
[2023-08-30] MEDS: DECADRON 3 MG IV (22:29)
[2023-08-30] MEDS: TAPAZOLE 20 MG TUBE (22:30)
[2023-08-30 23:05] LABS: APTT 45.3 Sec (23.4-35.0)
[2023-08-30 23:27] VITALS: BP 147/60
[2023-08-31] VITALS (8 sets, daily range): BP systolic 142–155; BP diastolic 57–75; PULSE 74; O2SAT 97–98; BMI 18.9
[2023-08-31 00:02] LABS: Glucose - Point of Care 158 mg/dl (70-99)
[2023-08-31] MEDS: NOVOLOG FLEXPEN-LOW RESISTANCE 1 UNITS SC ×4 (00:52→23:33)
[2023-08-31 05:16] LABS: Glucose - Point of Care 194 mg/dl (70-99)
[2023-08-31 05:36] LABS: Hematocrit 31.2 % (37.0-47.0); Hemoglobin 10.4 g/dL (12.0-16.0); Mean Corp Hgb Conc. 33.3 g/dL (33.0-37.0); Mean Corpuscular Hgb 28.9 pg (27.0-31.0); Mean Corpuscular Volume 86.7 fL (81.0-99.0); Mean Platelet Volume 9.6 fL (7.4-10.4); Platelet Count 258 10^3/uL (130-400); Red Cell Dist. Width 13.7 % (11.5-14.5); White Blood Cell Count 7.3 10^3/uL (4.8-10.8)
[2023-08-31 05:46] LABS: APTT 79.6 Sec (23.4-35.0)
[2023-08-31 06:11] LABS: Blood Urea Nitrogen 48 mg/dl (7-17); Calcium 8.7 mg/dl (8.4-10.2); Carbon Dioxide 24 mmol/L (22-30); Chloride 111 mmol/L (98-107); Estimated Creatinine Clearance 22 ml/min; Glucose 168 mg/dl (70-99); Magnesium 2.9 mg/dl (1.6-2.3); Potassium 3.2 mmol/L (3.5-5.1); Sodium 144 mmol/L (135-145)
[2023-08-31] MEDS: TAPAZOLE 20 MG TUBE (08:51)
[2023-08-31] MEDS: PACERONE 200 MG PO (08:51)
[2023-08-31] MEDS: MIRALAX 17 GRAMS PO ×2 (08:51→23:32)
[2023-08-31] MEDS: DECADRON 3 MG IV (08:52)
[2023-08-31] MEDS: COLACE PO ×2 (08:52→21:59)
[2023-08-31] MEDS: PROTONIX PO ×2 (08:53→22:01)
[2023-08-31] MEDS: KCL 270 MEQ IV (09:02)
[2023-08-31 09:53] LABS: Urine Albumin Trace (Neg - Trace); Urine Bilirubin 1+ (Negative); Urine Character Slightly Cloudy (Clear); Urine Color Yellow; Urine Glucose Negative (Negative); Urine Ketone 2+ (Negative); Urine Leukocyte 2+ (Negative); Urine Nitrite Negative (Negative); Urine Occult Blood Negative (Negative); Urine Urobilinogen Negative (Neg - 1+)
[2023-08-31 10:07] LABS: Urine Red Blood Cell 0-2 /HPF (0-2); Urine White Cell 26-30 /HPF (0-5)
[2023-08-31 10:10] LABS: Urine Sodium 6 mmol/L (30-90)
[2023-08-31 11:32] LABS: Glucose - Point of Care 188 mg/dl (70-99)
[2023-08-31 12:31] LABS: APTT 66.4 Sec (23.4-35.0)
[2023-08-31] MEDS: NSS 1000 IV (12:31)
--- NOTE | 2023-08-31 13:26 | W.PN.GI.CBS2 ---
Addendum entered and electronically signed by Zoltan Hernandez MD 08/31/23 15:33:
I saw and examined the patient.
The GLOVE SEWER or PA's note was reviewed and I agree with the note.
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
Ongoing vomiting yesterday NGT placed.
Plan for CT a/p.
Pending CT can start clear liquid diet.
Original Note:
Today's Communication / Plan
-
Await CT
Labs am
Surgical consult
Assessment / Plan
-
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
anastomosis and abdominal washout in February 2023 who presents to the emergency room with acute episodes of nausea and vomiting. Asked to evaluate for the same as well as brown vomitus. Patient is also on Prednisone every other day for unknown
inflammatory process. Abdominal x-ray shows moderate amount of gas in nondilated loops of bowel. Large amount of feces throughout colon and rectum suggesting possible constipation. Rectal exam performed in the ER was brown stool but was OB
positive. Patient had episode of normal appearing emesis in the ER per records. Patient is currently on a Protonix drip. She has Zofran available to her. Milk molasses enema has already been ordered by medicine attending. The patient remains
n.p.o. at this time.
08/28/23 AXR- moderate-large amount feces throughout colon and rectum.
Impression:
Nausea and Vomiting concern for SBO
Constipation on Imaging
OB positive Brown stool
Afib on Eliquis, last dose 08/27/23 am
Plan:
-Obtain CT Abd/Pelvis with oral contrast now. Then will remove contrast via NGT.
-Continue NGT to Low int suction
-Surgical consultation placed and TT sent.
-CBC, CMP in am
Subjective
Subjective
Date of Service: August 31, 2023
Patient with brown thick feculent vomiting last evening that required NGT placement with 2400 cc removed. Patient without any pain. Not passing flatus. Had very small stool overnight. There is scant < 50 cc clear brown material in NGT canister
currently.
Objective
Data Reviewed
Laboratory Data:
Laboratory Results
08/31/23 04:58
08/31/23 04:58
Laboratory Results
APTT 66.4 Sec (23.4-35.0) H 08/31/23 12:05
Magnesium 2.9 mg/dl (1.6-2.3) H 08/31/23 04:58
Total Bilirubin 0.9 mg/dl (0.2-1.3) 08/29/23 05:42
AST 33 U/L (14-36) 08/29/23 05:42
ALT 51 U/L (0-35) H 08/29/23 05:42
Alkaline Phosphatase 94 U/L (38-126) 08/29/23 05:42
Lipase 370 U/L (23-300) H 08/27/23 21:53
Vital Signs and I&O:
Vital Signs
Temp Pulse Resp BP Pulse Ox
97.9 F 87 16 144/70 97
08/31/23 11:59 08/31/23 11:59 08/31/23 11:59 08/31/23 11:59 08/31/23 11:59
I&O
08/30/23 08/31/23 09/01/23
06:59 06:59 06:59
Intake Total 1260 / 1260 1370 / 1370
Output Total 780 / 780 2400 / 2400
Balance 480 / 480 -1030 / -1030
Physical Exam
Physical Exam
HEENT: Anicteric
Cardiology: Normal Sinus Rhythm
Pulmonary: Clear
GI: Soft, Non Distended, Non Tender and Other (absent/hypoactive BS best heard in LLQ)
Neuro: Non Focal
[2023-08-31] MEDS: OMNIPAQUE 50 ML PO (14:06)
--- NOTE | 2023-08-31 16:12 | W.PN.HOSP.TC ---
Addendum entered and electronically signed by Jeff Encinas MD 08/31/23 20:13:
moderate protein calorie malnutririon
Addendum entered and electronically signed by Jeff Encinas MD 08/31/23 16:18:
Correction-off of Eliquis ,patient is on heparin drip while Eliquis is on hold
Original Note:
Today's Communication/Plan
-
CT scan of the abdomen and pelvis
IV fluids
Replace potassium
Surgical evaluation
Assessment / Plan
Assessment / Plan
87-year-old female on Eliquis admitted with nausea vomiting
No abdominal pain, Has NGT
Cardiovascular system S1-S2 appreciated
Chest clear to auscultation
Abdomen soft slightly distended, NOt much BS
Obstruction status-retrocardiac airspace disease reflect atelectasis. Nonspecific bowel gas pattern without evidence of obstruction. Mild to moderate diffuse colonic stool burden
# Coffee-ground vomitus likely secondary to ileus
Constipation
NG tube was placed with 1600 mL of fluid obtained yesterday. Not much output today. Getting an CT scan with oral contrast.
Had a small BM
Surgery consulted with patient's history
# Mild hyponatremia-likely hypovolemic. Resolved
# Hypokalemia-replace IV
# Elevated LFTs-follow
# Slightly elevated lipase not related to pancreatitis
# Abnormal thyroid function test-I have reached out to .
Advised to start methimazole 20 mg daily and prednisone 20 mg daily for 2 weeks. Patient needs to be seen by endocrine within 2 weeks.
Advised patient and that they need to inform the office that children's choir director wanted him to be seen within 2 weeks to get an appointment.
Pharmacy does not have the rectal formulation of methimazole therefore on 20 mg and p.o. and clamping NG tube
Using Decadron while n.p.o.
# Paroxysmal atrial fibrillation on Eliquis and metoprolol as outpatient
Also on amiodarone 200 mg daily
Continue metoprolol and Eliquis
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
Echo 08/04/2023-moderately reduced ejection fraction 40%. Global hypokinesis. Aortic sclerosis without stenosis. Moderate AI
On metoprolol, torsemide as outpatient-Hold Torsamide
# Hypertension-On metoprolol
# Hyperlipidemia-patient was on atorvastatin
# Diabetes-was on metformin thousand twice daily
Hemoglobin A1c 7.6
Accu-Cheks and sliding scale coverage
# VANESSA on CKD stage III-IV fluids while n.p.o.
Follow creatinine

# Patient is on prednisone for Bullous Pemphigoid
10 mg alternating with 5 mg every other day
Changed to Decadron while n.p.o.
# Pulmonary hypertension
# Valvular heart disease-moderate TR, moderate AI
# History of small bowel perforation with ex small bowel resection with primary anastomosis and abdominal washout February 2023
# Pulmonary hypertension
# Valvular heart disease-moderate TR, moderate AI
# Left upper extremity PICC line associated DVT in the past
# Ambulatory dysfunction-uses a walker
Spinal stenosis
# Migraines
# Hypoalbuminemia
# DVT prophylaxis
# Full code
D/W RN
Discussed with at bedside
Discussed with GI
Anticipated Discharge: > 48 hours
Subjective/Interval History
-
Date of Service: August 31, 2023
Objective Data
-
Labs:
Laboratory Results
08/31/23 08/31/23 08/31/23
04:58 12:05 19:00
WBC 7.3
Hgb 10.4 L
Hct 31.2 L
Plt Count 258
APTT 79.6 H 66.4 H Pending
Sodium 144
Potassium 3.2 L
Chloride 111 H
Carbon Dioxide 24
BUN 48 H
Creatinine 1.3 H
Glucose 168 H
Calcium 8.7
Vital Signs:
Vital Signs
Temp Pulse Resp BP Pulse Ox
97.8 F 70 16 154/64 95
08/31/23 15:50 08/31/23 15:50 08/31/23 15:50 08/31/23 15:50 08/31/23 15:50
I&O
08/30/23 08/31/23 09/01/23
06:59 06:59 06:59
Intake Total 1260 / 1260 1370 / 1370
Output Total 780 / 780 2400 / 2400
Balance 480 / 480 -1030 / -1030
[2023-08-31] MEDS: HEPARIN 25000 UNITS/250 ML IV (17:26)
[2023-08-31] MEDS: LIPITOR PO (17:27)
[2023-08-31 17:58] LABS: Glucose - Point of Care 212 mg/dl (70-99)
[2023-08-31] MEDS: NOVOLOG FLEXPEN-LOW RESISTANCE 2 UNITS SC (18:17)
[2023-08-31 19:41] LABS: APTT 87.6 Sec (23.4-35.0)
[2023-08-31] MEDS: TOPROL XL PO (21:59)
[2023-08-31] MEDS: MIRALAX PO (22:37)
[2023-08-31 23:30] LABS: Glucose - Point of Care 181 mg/dl (70-99)
[2023-09-01] VITALS (11 sets, daily range): BP systolic 133–170; BP diastolic 59–70; BMI 19.3
[2023-09-01 01:33] LABS: Hematocrit 29.7 % (37.0-47.0); Hemoglobin 10.1 g/dL (12.0-16.0); Mean Corpuscular Hgb 29.4 pg (27.0-31.0); Mean Corpuscular Volume 86.3 fL (81.0-99.0); Mean Platelet Volume 8.8 fL (7.4-10.4); Platelet Count 229 10^3/uL (130-400); Red Blood Cell Count 3.44 10^6/uL (4.20-5.40); Red Cell Dist. Width 13.9 % (11.5-14.5); White Blood Cell Count 10.3 10^3/uL (4.8-10.8)
[2023-09-01 01:47] LABS: APTT 129.7 Sec (23.4-35.0)
[2023-09-01] MEDS: NSS 1000 IV ×2 (02:19→23:28)
[2023-09-01 03:25] LABS: Albumin 2.4 g/dl (3.5-5.0); Blood Urea Nitrogen 52 mg/dl (7-17); Estimated Creatinine Clearance 24 ml/min; Total Bilirubin 0.6 mg/dl (0.2-1.3); Total Protein 4.4 g/dl (6.3-8.2); eGFR 43.81
[2023-09-01 03:47] LABS: ALT (SGPT) 136 U/L (0-35); AST (SGOT) 57 U/L (14-36); Alkaline Phosphatase 85 U/L (38-126); Carbon Dioxide 23 mmol/L (22-30); Chloride 112 mmol/L (98-107); Glucose 149 mg/dl (70-99); Magnesium 2.8 mg/dl (1.6-2.3); Potassium 4.2 mmol/L (3.5-5.1); Sodium 141 mmol/L (135-145)
[2023-09-01 05:45] LABS: Glucose - Point of Care 167 mg/dl (70-99)
[2023-09-01] MEDS: NOVOLOG FLEXPEN-LOW RESISTANCE 1 UNITS SC ×3 (05:45→23:33)
--- NOTE | 2023-09-01 08:02 | W.PN.HOSP.TC ---
Today's Communication/Plan
-
N.p.o., IV fluids, IV antibiotics. Surgery evaluation
Assessment / Plan
Assessment / Plan
87-year-old female on Eliquis admitted with nausea vomiting
No abdominal pain, Has NGT
Physical exam:
General: Acutely ill
HEENT: Normocephalic, Atraumatic and Moist Mucous Membranes
Respiratory: Clear to Auscultation; Negative Wheezes, Rales or Rhonchi
Cardiac: Regular Rhythm and S1/S2
GI: Soft, Nontender and Distended, absent bowel sounds
Musculoskeletal: No Clubbing, No Cyanosis and No Edema
Neuro: Awake, Alert and Oriented
Psych: Calm
A/P:
Obstruction status-retrocardiac airspace disease reflect atelectasis. Nonspecific bowel gas pattern without evidence of obstruction. Mild to moderate diffuse colonic stool burden
# Coffee-ground vomitus likely secondary to ileus/small bowel obstruction
Constipation
NG tube was placed with 1600 mL of fluid obtained. Not much output today. Getting an CT scan with oral contrast.
Surgery consulted--> see below
#Small bowel obstruction/gallstone ileus
-Keep n.p.o., IV fluid
-Start IV antibiotics, Zosyn
-Surgery consulted, likely will need OR
# Mild hyponatremia-likely hypovolemic. Resolved
# Hypokalemia-replace IV
# Elevated LFTs-follow
# Slightly elevated lipase not related to pancreatitis
# Abnormal thyroid function test-I have reached out to .
Advised to start methimazole 20 mg daily and prednisone 20 mg daily for 2 weeks. Patient needs to be seen by endocrine within 2 weeks.
Advised patient and that they need to inform the office that car carder wanted him to be seen within 2 weeks to get an appointment.
Pharmacy does not have the rectal formulation of methimazole therefore on 20 mg and p.o. and clamping NG tube
Using Decadron while n.p.o.
# Paroxysmal atrial fibrillation on Eliquis and metoprolol as outpatient
Also on amiodarone 200 mg daily
Continue metoprolol and Eliquis
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
Echo 08/04/2023-moderately reduced ejection fraction 40%. Global hypokinesis. Aortic sclerosis without stenosis. Moderate AI
On metoprolol, torsemide as outpatient-Hold Torsamide
# Hypertension-On metoprolol
# Hyperlipidemia-patient was on atorvastatin
# Diabetes-was on metformin thousand twice daily
Hemoglobin A1c 7.6
Accu-Cheks and sliding scale coverage
# VANESSA on CKD stage III-IV fluids while n.p.o.
Follow creatinine

# Patient is on prednisone for Bullous Pemphigoid
10 mg alternating with 5 mg every other day
Changed to Decadron while n.p.o.
# Pulmonary hypertension
# Valvular heart disease-moderate TR, moderate AI
# History of small bowel perforation with ex small bowel resection with primary anastomosis and abdominal washout February 2023
# Pulmonary hypertension
# Valvular heart disease-moderate TR, moderate AI
# Left upper extremity PICC line associated DVT in the past
# Ambulatory dysfunction-uses a walker
Spinal stenosis
# Migraines
# Hypoalbuminemia
# DVT prophylaxis
# Full code
D/W RN
Discussed with and son at bedside
Total time spent on today's encounter was 52 minutes which included time spent in counseling the patient/family regarding diagnosis and treatment plan as listed above, goals of care, and symptom management. Case was discussed with nursing staff,
specialists, and care coordinators/case management. All labs and imaging personally reviewed by me. Remainder the time spent in detailed review of previous records, lab data, imaging, and other medical provider documentation.
Anticipated Discharge: > 48 hours
Subjective/Interval History
-
Date of Service: September 01, 2023
Patient still with abdominal distention. No gases or bowel movement. Afebrile. No chest pain or shortness of breath
Objective Data
-
Labs:
Laboratory Results
09/01/23 09/01/23
01:23 08:00
WBC 10.3
Hgb 10.1 L
Hct 29.7 L
Plt Count 229
APTT 129.7 H Pending
Sodium 141
Potassium 4.2 D
Chloride 112 H
Carbon Dioxide 23
BUN 52 H
Creatinine 1.2 H
Glucose 149 H
Calcium 9.0
Total Bilirubin 0.6
AST 57 H
ALT 136 H
Alkaline Phosphatase 85
Vital Signs:
Vital Signs
Temp Pulse Resp BP Pulse Ox
97.6 F 68 16 145/63 94
09/01/23 07:48 09/01/23 07:48 09/01/23 07:48 09/01/23 07:48 09/01/23 07:48
I&O
08/31/23 09/01/23 09/02/23
06:59 06:59 06:59
Intake Total 1370 / 1370 1999 / 1999
Output Total 2400 / 2400 400 / 400 75 / 75
Balance -1030 / -1030 1600 / 1600 -75 / -75
[2023-09-01 08:47] LABS: APTT 75.5 Sec (23.4-35.0)
[2023-09-01] MEDS: MIRALAX PO (09:33)
[2023-09-01] MEDS: COLACE PO (09:33)
[2023-09-01] MEDS: PROTONIX PO (10:50)
[2023-09-01] MEDS: PACERONE PO (10:50)
[2023-09-01] MEDS: TAPAZOLE TUBE (10:51)
--- NOTE | 2023-09-01 11:05 | W.PN.GI.CBS2 ---
Addendum entered and electronically signed by Zoltan Hernandez MD 09/01/23 12:05:
I saw and examined the patient.
The BENCH WORKER HELPER or PA's note was reviewed and I agree with the note.
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
CT yesterday gallstone ileus with fistula.
On d/w pt and Ana Maria plan for OR today.
GI will sign off please call with ?s.
Original Note:
Today's Communication / Plan
-
Surgical consultation
Continue NGT
Assessment / Plan
-
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
anastomosis and abdominal washout in February 2023 who presents to the emergency room with acute episodes of nausea and vomiting. Asked to evaluate for the same as well as brown vomitus. Patient is also on Prednisone every other day for unknown
inflammatory process. Abdominal x-ray shows moderate amount of gas in nondilated loops of bowel. Large amount of feces throughout colon and rectum suggesting possible constipation. Rectal exam performed in the ER was brown stool but was OB
positive. Patient had episode of normal appearing emesis in the ER per records. Patient is currently on a Protonix drip. She has Zofran available to her. Milk molasses enema has already been ordered by medicine attending. The patient remains
n.p.o. at this time.
08/28/23 AXR- moderate-large amount feces throughout colon and rectum.
CT Abd/Pelvis with oral contrast only 08/31/23:
IMPRESSION:
1. � GALLSTONE ILEUS. Small bowel obstruction secondary to a 2.8 cm obstructing gallstone in the terminal ileum.
2. 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
3. � Moderate to severe chronic kidney disease.
4. � Small volume ascites in the left paracolic gutter.
5. � Nasogastric tube in place.
6. � Moderate to severe cardiomegaly.
7. � Very severe erosive disease at T12/L1 (probably either chronic infectious discitis or neuropathic spondyloarthropathy).
8. � Severe multilevel thoracolumbar discogenic degenerative disease.
Impression:
Gallstone ileus/bowel obstruction
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
Constipation on Imaging
OB positive Brown stool
Afib on Eliquis, last dose 08/27/23 am. On Heparin gtt
Plan:
-Surgical consultation. Discussed with Dr. Garcia.
-Continue NGT to Low int suction
-Zosyn added this am. Discussed with IM Attending.
-Continue PPI IV
Subjective
Subjective
Date of Service: September 01, 2023
Patient without any abdominal pain. She has not passed any flatus or bowel movement. NG tube with less than 50 cc of brown bilious fluid. Results of CT of the abdomen pelvis with oral contrast resulted. Discussed with Surgery and IM notified.
General surgery consulted who will see patient today. LFTs trending down. Patient afebrile. White count 10.3. Hemoglobin stable at 10.1. Remains on heparin drip for paroxysmal A-fib. Started on Zosyn IV this a.m. for gallstone
ileus/obstruction.
Objective
Data Reviewed
Laboratory Data:
Laboratory Results
09/01/23 01:23
09/01/23 01:23
Laboratory Results
APTT 75.5 Sec (23.4-35.0) H 09/01/23 08:22
Magnesium 2.8 mg/dl (1.6-2.3) H 09/01/23 01:23
Total Bilirubin 0.6 mg/dl (0.2-1.3) 09/01/23 01:23
AST 57 U/L (14-36) H 09/01/23 01:23
ALT 136 U/L (0-35) H 09/01/23 01:23
Alkaline Phosphatase 85 U/L (38-126) 09/01/23 01:23
Lipase 370 U/L (23-300) H 08/27/23 21:53
Vital Signs and I&O:
Vital Signs
Temp Pulse Resp BP Pulse Ox
97.6 F 68 16 145/63 94
09/01/23 07:48 09/01/23 07:48 09/01/23 07:48 09/01/23 07:48 09/01/23 07:48
I&O
08/31/23 09/01/23 09/02/23
06:59 06:59 06:59
Intake Total 1370 / 1370 2000 / 1999
Output Total 2400 / 2400 400 / 400 75 / 75
Balance -1030 / -1030 1600 / 1600 -75 / -75
Physical Exam
Physical Exam
HEENT: Anicteric and Other (NGT with < 50 cc brown bilious fluid)
Cardiology: Normal Sinus Rhythm
Pulmonary: Clear (anterior)
GI: Soft, Non Distended, Non Tender and Other (bowel sounds hypoactive)
Extremities: No Edema
Neuro: Non Focal
[2023-09-01 11:16] LABS: Glucose - Point of Care 150 mg/dl (70-99)
[2023-09-01] MEDS: ZOSYN 50 IV ×3 (11:34→23:30)
[2023-09-01] MEDS: DECADRON 3 MG IV (11:35)
--- NOTE | 2023-09-01 12:58 | W.PN.UPDATE ---
Update Note
Progress Note Update
Clinically improved with less pain and nausea, however no ROBF. Exam is benign with soft distention and no ttp. Vitals and labs are stable. CT with gallstone ileus, cholecystoduodenal fistula and pneumobilia. Recommend exploratory laparotomy and
stone extraction. Discussed in detail with pt and , all are in agreement to proceed to OR. Hep gtt held @ 12PM.
--- NOTE | 2023-09-01 16:25 | CM ---
Chart reviewed and possible OR today.
Plan; patient's plan was to home with spouse and [facility] visiting nurses.
--- NOTE | 2023-09-01 16:46 | W.IMMPOSTOP ---
Surgical Immed Post Op Note
-
Primary Surgeon: Samantha
Assisting: [place] VILLANUEVA
Pre-op Diagnosis: Gallstone ileus
Post-op Diagnosis: Same
Procedure Performed: Exploratory laparotomy, stone extraction from cecum, partial cecetomy
Anesthesia Type: GETA
Specimen / Cultures: Gallstone
Estimated Blood Loss: 5cc
Complications: None immediate
Operative Findings: Stone in the cecum, 1cm colotomy created at the lateral most proximal colon and stone was milked out, colotomy closed with STEPHON purple load stapler, meticulous hemostasis, very minimal contamination localized to the RLQ only
--- NOTE | 2023-09-01 16:48 | OR.RPT ---
Operative Report
Operative Report
Primary Surgeon: Samantha
Assisting: Richmond VILLANUEVA
Pre-op Diagnosis: Gallstone ileus
Post-op Diagnosis: Same
Procedure Performed: Exploratory laparotomy, stone extraction from cecum, partial cecetomy
Anesthesia Type: GETA
Specimen / Cultures: Gallstone
Estimated Blood Loss: 5cc
Complications: None immediate
Operative Findings: Stone in the cecum, 1cm colotomy created at the lateral most proximal colon and stone was milked out, colotomy closed with STEPHON purple load stapler, meticulous hemostasis, very minimal contamination localized to the RLQ only
Date of Surgery: 09/01/23
Indications: This 87F developed a small bowel obstruction and on imaging was found to have a large gallstone obstructing the terminal ileum. Cholecystoduodenal fistula was also noted as well as pneumobilia.
Description of procedure: The patient was taken to the operating room and placed supine with arms tucked at the sides. After induction of general anesthesia, the patient�s abdomen was prepped and draped in standard sterile fashion. The patient was
placed in the Trendelenburg position. A time-out was completed verifying correct patient, procedure, site, positioning, and implants and special equipment prior to beginning this procedure. A midline incision was made with bovie cut at the site of
her prior midline scar. Thin omental adhesions to the abdominal wall were carefully lysed with blunt dissection and bovie cautery. An anastacia wound protector was placed. The abdomen was inspected and no abnormalities were immediately evident. The
right upper quadrant was carefully and gently inspected and no bile staining nor purulence was evident. Attention was turned to the right lower quadrant. The terminal ileum was normal. A large gallstone was palpated in the cecum. A limited cecotomy
at the proximal lateral corner of the cecum was created with metzenbaum hunter and the stone was milked out and passed off the table as specimen. The cecotomy was closed with a STEPHON 80mm purple load stapler. A limited amount of stool spilled
contained to the immediate operative field. This was thoroughly irrigated with warm sterile saline. Wound protector was removed. The fascia was closed with #1 PDS stratafix suture. The skin was closed with elizabeth and an aquacel dressing was placed.
The patient tolerated the procedure well and was taken to the postanesthesia care unit in stable condition.
--- NOTE | 2023-09-01 16:57 | W.PN.UPDATE ---
Update Note
Progress Note Update
Please cont to hold hep gtt for minimum 24 hrs post-op. Tentative plan to restart Wednesday am.
[2023-09-01 17:44] LABS: Glucose - Point of Care 185 mg/dl (70-99)
[2023-09-01] MEDS: ZOSYN IV (17:56)
[2023-09-01] MEDS: NOVOLOG FLEXPEN-LOW RESISTANCE SC (18:00)
--- NOTE | 2023-09-01 18:38 | SUR.PHASEI ---
took patients [facility]. Marli RAO informed. Salomon Vail RN BSN.
[2023-09-01 23:28] LABS: Glucose - Point of Care 182 mg/dl (70-99)
[2023-09-02] VITALS (7 sets, daily range): BP systolic 146–156; BP diastolic 58–85; PULSE 72; O2SAT 100; BMI 19.8
[2023-09-02 05:07] LABS: Glucose - Point of Care 169 mg/dl (70-99)
[2023-09-02] MEDS: ZOSYN 50 IV ×4 (05:11→23:17)
[2023-09-02] MEDS: NOVOLOG FLEXPEN-LOW RESISTANCE 1 UNITS SC ×2 (05:26→12:53)
--- NOTE | 2023-09-02 08:10 | W.PN.HOSP.TC ---
Addendum entered and electronically signed by Garland Villanueva MD 09/02/23 16:31:
reports RLE is not new- will do ct head but hold off on mri and will discuss more in detail with family and reexamine her.
Addendum entered and electronically signed by Garland Villanueva MD 09/02/23 16:16:
Some reports of LLE weakness ?new--> will obtain ct head and possible mri brain
Original Note:
Today's Communication/Plan
-
N.p.o., IV fluids, IV antibiotics.
Assessment / Plan
Assessment / Plan
Physical exam:
General: Acutely ill
HEENT: Normocephalic, Atraumatic and Moist Mucous Membranes
Respiratory: Clear to Auscultation; Negative Wheezes, Rales or Rhonchi
Cardiac: Regular Rhythm and S1/S2
GI: Soft, Nontender and Distended, absent bowel sounds. Postop findings.
Musculoskeletal: No Clubbing, No Cyanosis and No Edema
Neuro: Awake, Alert and Oriented
Psych: Calm
A/P:
#Small bowel obstruction/gallstone ileus status post exploratory laparotomy, ASHELY, cecotomy and removal of stone for gallstone ileus on 08/31:
-Keep n.p.o., IV fluid
-Continue NG tube
-Continue IV antibiotics, Zosyn
-Surgery consult and follow-up appreciated
-Surgery recommend holding heparin gtt for now
# Mild hyponatremia
Resolved
# Hypokalemia
Resolved
# Elevated LFTs
Improving
# Slightly elevated lipase not related to pancreatitis
# Abnormal thyroid function test-I have reached out to .
Advised to start methimazole 20 mg daily and prednisone 20 mg daily for 2 weeks. Patient needs to be seen by endocrine within 2 weeks.
Advised patient and that they need to inform the office that director of casework services wanted him to be seen within 2 weeks to get an appointment.
Pharmacy does not have the rectal formulation of methimazole therefore on 20 mg orally when able to take oral
Using iv Decadron while n.p.o.
# Paroxysmal atrial fibrillation on Eliquis and metoprolol as outpatient
Also on amiodarone 200 mg daily when able to take oral
Continue metoprolol and Eliquis when able to take oral or heparin drip when able to use it
For now IV Lopressor as needed
Continue telemetry
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
Echo 08/04/2023-moderately reduced ejection fraction 40%. Global hypokinesis. Aortic sclerosis without stenosis. Moderate AI
When able to take oral-->on metoprolol, torsemide as outpatient-Hold Torsamide
# Hypertension-On metoprolol when able to take oral
# Hyperlipidemia-patient was on atorvastatin when able to take oral
# Diabetes-was on metformin thousand twice daily
Hemoglobin A1c 7.6
Accu-Cheks and sliding scale coverage
# VANESSA on CKD stage III-IV fluids while n.p.o.
Follow creatinine

# Patient is on prednisone for Bullous Pemphigoid
10 mg alternating with 5 mg every other day
Changed to iv Decadron while n.p.o.
# Pulmonary hypertension
# Valvular heart disease-moderate TR, moderate AI
# History of small bowel perforation with ex small bowel resection with primary anastomosis and abdominal washout February 2023
# Pulmonary hypertension
# Valvular heart disease-moderate TR, moderate AI
# Left upper extremity PICC line associated DVT in the past
# Ambulatory dysfunction-uses a walker
Spinal stenosis
# Migraines
# Hypoalbuminemia
# DVT prophylaxis
# Full code
Total time spent on today's encounter was 52 minutes which included time spent in counseling the patient/family regarding diagnosis and treatment plan as listed above, goals of care, and symptom management. Case was discussed with nursing staff,
specialists, and care coordinators/case management. All labs and imaging personally reviewed by me. Remainder the time spent in detailed review of previous records, lab data, imaging, and other medical provider documentation.
Anticipated Discharge: > 48 hours
Subjective/Interval History
-
Date of Service: September 02, 2023
Patient complains of dry mouth. No abdominal pain. Not passing gas or bowel movement yet.
Objective Data
-
Labs:
Laboratory Results
09/02/23
07:04
WBC Pending
Hgb Pending
Hct Pending
Plt Count Pending
Sodium Pending
Potassium Pending
Chloride Pending
Carbon Dioxide Pending
BUN Pending
Creatinine Pending
Glucose Pending
Calcium Pending
Total Bilirubin Pending
AST Pending
ALT Pending
Alkaline Phosphatase Pending
Vital Signs:
Vital Signs
Temp Pulse Resp BP Pulse Ox
97.7 F 78 20 148/59 99
09/02/23 03:24 09/02/23 03:24 09/02/23 03:24 09/02/23 03:24 09/02/23 03:24
I&O
09/01/23 09/02/23 09/03/23
06:59 06:59 06:59
Intake Total 1999 / 1999 180 / 180 1300 / 1300
Output Total 400 / 400 825 / 825
Balance 1600 / 1600 -645 / -645 1275 / 1275
Review of Systems
-
All other systems: Reviewed and negative
[2023-09-02] MEDS: PROTONIX IV 40 MG IV (08:33)
[2023-09-02] MEDS: NSS (PRESERVATIVE FREE) 10 ML IV (08:33)
[2023-09-02 08:53] LABS: % Immature Granulocytes 0.7 % (0-0.5); % Lymphocytes 7.3 % (20.5-51.1); % Monocytes 4.3 % (1.7-9.3); % Neutrophils 87.7 % (42.2-75.2); Absolute Immature Granulocytes 0.1 10^3/uL (0-0.05); Absolute Lymphocytes 0.7 10^3/uL (1.2-3.4); Absolute Monocytes 0.4 10^3/uL (0.1-0.6); Absolute Neutrophils 7.9 10^3/uL (1.4-6.5); Hematocrit 33.7 % (37.0-47.0); Hemoglobin 10.9 g/dL (12.0-16.0); Mean Corp Hgb Conc. 32.3 g/dL (33.0-37.0); Mean Corpuscular Volume 89.6 fL (81.0-99.0); Mean Platelet Volume 9.6 fL (7.4-10.4); Nucleated Red Blood Cells % 0 %; Platelet Count 245 10^3/uL (130-400); Red Blood Cell Count 3.76 10^6/uL (4.20-5.40); Red Cell Dist. Width 13.9 % (11.5-14.5); White Blood Cell Count 8.9 10^3/uL (4.8-10.8)
[2023-09-02 09:37] LABS: ALT (SGPT) 102 U/L (0-35); AST (SGOT) 39 U/L (14-36); Albumin 2.4 g/dl (3.5-5.0); Alkaline Phosphatase 85 U/L (38-126); Blood Urea Nitrogen 35 mg/dl (7-17); Calcium 9.2 mg/dl (8.4-10.2); Carbon Dioxide 24 mmol/L (22-30); Chloride 114 mmol/L (98-107); Estimated Creatinine Clearance 26 ml/min; Glucose 128 mg/dl (70-99); Potassium 3.9 mmol/L (3.5-5.1); Sodium 144 mmol/L (135-145); Total Bilirubin 0.5 mg/dl (0.2-1.3); Total Protein 4.5 g/dl (6.3-8.2); eGFR 43.81
--- NOTE | 2023-09-02 10:42 | W.PN.GS2 ---
Today's Communication / Plan
-
`
Assessment / Plan
-
Assessment: 87 y/o female POD#1 s/p ex lap, ASHELY, cecotomy/removal stone for gallstone ileus presentation
AFVSS
doing well post op
Plan: pain control
maintain NGT awaiting return of GI function
okay for ice chips sparingly for comfort
IVF
Zosyn postop for localized contamination with colotomy/stone extraction
hold heparin gtt until 09/02 assuming stable H&H in AM tomorrow
Subjective Data
-
Date of Service: September 02, 2023
pt seen and examined
c/o NGT and being NPO
denies significant post op pain
Objective Data
-
Intake and Output
09/01/23 09/02/23 09/03/23
06:59 06:59 06:59
Intake Total 2000 / 2000 180 / 180 1300 / 1300
Output Total 400 / 400 825 / 825 25 /
Balance 1600 / 1600 -645 / -645 1275 / 1275
Intake:
Oral fluids 0 / 0 0 / 0
IV fluids (Total) 1700 / 1700 125 / 125 1200 / 1200
norm 125 / 125
IV piggybacks 270 / 270 50 / 50 100 / 100
Amount instilled into GI Tube ( 30 / 30 5 / 5
Total)
Anderson Sump 30 / 30 5 / 5
Output:
Gastrointestinal tube output ( 150 / 150 75 / 75 25 / 25
Total)
Anderson Sump 150 / 150 75 / 75 25 / 25
Urine, Voided 250 / 250 750 / 750
Other:
How many times incontinent 2
SATURATED amount urine
Vital Signs
Temp Pulse Resp BP Pulse Ox
96.4 F L 96 20 146/78 100
09/02/23 07:13 09/02/23 07:13 09/02/23 07:13 09/02/23 07:13 09/02/23 07:13
Lab Results
09/02/23 07:04
09/02/23 07:04
Calcium 9.2 mg/dl (8.4-10.2) 09/02/23 07:04
Magnesium 2.8 mg/dl (1.6-2.3) H 09/01/23 01:23
Total Bilirubin 0.5 mg/dl (0.2-1.3) 09/02/23 07:04
Direct Bilirubin 0.1 mg/dl (0.0-0.4) 08/29/23 05:42
AST 39 U/L (14-36) H 09/02/23 07:04
ALT 102 U/L (0-35) H 09/02/23 07:04
Alkaline Phosphatase 85 U/L (38-126) 09/02/23 07:04
Total Protein 4.5 g/dl (6.3-8.2) L 09/02/23 07:04
Albumin 2.4 g/dl (3.5-5.0) L 09/02/23 07:04
Physical Exam
-
NAD AAOx3
ABD: soft, ND, mild TTP at incision
incision with Aquacel dressing
[2023-09-02 11:40] LABS: Glucose - Point of Care 150 mg/dl (70-99)
--- NOTE | 2023-09-02 12:05 | PTOTSP ---
Patient is s/p exp lap with general anesthesia on 09/01/23. Will need new PT orders to resume. Please reconsult when medically appropriate.
[2023-09-02] MEDS: LOPRESSOR 5 MG IV ×2 (12:50→19:57)
[2023-09-02] MEDS: NSS 1000 IV (12:50)
--- NOTE | 2023-09-02 16:21 | CM ---
production support manager met with patient and reviewed physical therapy recommendations with patient and patient does not want skilled placement, wants to return to home with spouse when stable. Patient has [facility] visiting nurses at home, need follow up.
[facility] [phone]

Plan; Home with [facility] v's skilled when stable, will follow with patient progress.
--- NOTE | 2023-09-02 18:00 | PTCARENOTE ---
1615 Physical therapist worked with pt and noted right leg weaker than left leg. When I asked pt and pt's spouse at bedside both mention right leg started to become weaker prior to admission. Dr. Villanueva notified and ordered Cat Scan of Head. Explain
to pt, pt sent to Cat Scan on stretcher.
1757 DR. Villanueva notified Cat Scan done and aware of results, continue to monitor pt closely.
[2023-09-02 18:08] LABS: Glucose - Point of Care 109 mg/dl (70-99)
[2023-09-02] MEDS: NOVOLOG FLEXPEN-LOW RESISTANCE SC (18:30)
[2023-09-02 23:58] LABS: Glucose - Point of Care 91 mg/dl (70-99)
[2023-09-03] VITALS (7 sets, daily range): BP systolic 141–162; BP diastolic 66–74; PULSE 89; O2SAT 96; BMI 20.4
[2023-09-03] MEDS: NOVOLOG FLEXPEN-LOW RESISTANCE SC ×4 (00:06→19:09)
[2023-09-03] MEDS: ZOSYN 50 IV ×4 (05:11→23:55)
[2023-09-03] MEDS: NSS 1000 IV (05:11)
[2023-09-03 06:00] LABS: Glucose - Point of Care 80 mg/dl (70-99)
[2023-09-03] MEDS: PROTONIX IV 40 MG IV (08:26)
[2023-09-03] MEDS: NSS (PRESERVATIVE FREE) 10 ML IV (08:27)
--- NOTE | 2023-09-03 08:49 | W.PN.HOSP.TC ---
Today's Communication/Plan
-
N.p.o., IV fluids, NG tube. Brain MRI. Restart heparin drip.
Assessment / Plan
Assessment / Plan
Physical exam:
General: Acutely ill
HEENT: Normocephalic, Atraumatic and Moist Mucous Membranes
Respiratory: Clear to Auscultation; Negative Wheezes, Rales or Rhonchi
Cardiac: Regular Rhythm and S1/S2
GI: Soft, Nontender and Distended, bowel sounds hypodynamic. Postop findings.
Musculoskeletal: No Clubbing, No Cyanosis and No Edema
Neuro: Awake, Alert and Oriented, right lower extremity weakness.
Psych: Calm
A/P:
#Small bowel obstruction/gallstone ileus status post exploratory laparotomy, ASHELY, cecotomy and removal of stone for gallstone ileus on 08/31:
-Keep n.p.o., IV fluid
-Continue NG tube
-Continue IV antibiotics, Zosyn
-Surgery consult and follow-up appreciated
-Surgery recommend restart heparin gtt for now
#Right lower extremity
-CT of the head unremarkable last evening
-Will obtain MRI of the brain (history has been inconsistent, unclear if new or old)
-Surgery cleared to start heparin drip today.
# Mild hyponatremia
Resolved
# Hypokalemia
Resolved
# Elevated LFTs
Improving
# Slightly elevated lipase not related to pancreatitis
# Abnormal thyroid function test-Dr Encinas has reached out to .
Plan to start methimazole 20 mg daily and prednisone 20 mg daily for 2 weeks. Patient needs to be seen by endocrine within [address] Encinas advised patient and that they need to inform the office that assistant teacher wanted him to be seen within 2 weeks to get an appointment.
Pharmacy does not have the rectal formulation of methimazole therefore on 20 mg orally when able to take oral
Using iv Decadron while n.p.o.
# Paroxysmal atrial fibrillation on Eliquis and metoprolol as outpatient
Also on amiodarone 200 mg daily when able to take oral
Continue metoprolol and Eliquis when able to take oral or heparin drip when able to use it--> plan to start heparin drip today
For now IV Lopressor as needed until able to take oral.
Continue telemetry
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
Echo 08/04/2023-moderately reduced ejection fraction 40%. Global hypokinesis. Aortic sclerosis without stenosis. Moderate AI
When able to take oral-->on metoprolol, torsemide as outpatient-Hold Torsamide
We can use IV Lasix if needed but currently appears euvolemic.
# Hypertension-On metoprolol when able to take oral
# Hyperlipidemia-patient was on atorvastatin when able to take oral
# Diabetes-was on metformin thousand twice daily
Hemoglobin A1c 7.6
Accu-Cheks and sliding scale coverage
# VANESSA on CKD stage III-IV fluids while n.p.o.
Follow creatinine

# Patient is on prednisone for Bullous Pemphigoid
10 mg alternating with 5 mg every other day
Changed to iv Decadron while n.p.o.
# Pulmonary hypertension
# Valvular heart disease-moderate TR, moderate AI
# History of small bowel perforation with ex small bowel resection with primary anastomosis and abdominal washout February 2023
# Pulmonary hypertension
# Valvular heart disease-moderate TR, moderate AI
# Left upper extremity PICC line associated DVT in the past
# Ambulatory dysfunction-uses a walker
Spinal stenosis
# Migraines
# Hypoalbuminemia
# DVT prophylaxis
# Full code
Anticipated Discharge: > 48 hours
Subjective/Interval History
-
Date of Service: September 03, 2023
Patient is passing gases. No bowel movement. No abdominal pain. Her main discomfort is with NG tube. Denies chest pain or shortness of breath. She has some weakness in right lower extremity and she tells me that this is relatively new over the
last couple days.
Objective Data
-
Labs:
Laboratory Results
09/03/23
07:16
WBC Pending
Hgb Pending
Hct Pending
Plt Count Pending
Sodium Pending
Potassium Pending
Chloride Pending
Carbon Dioxide Pending
BUN Pending
Creatinine Pending
Glucose Pending
Calcium Pending
Total Bilirubin Pending
AST Pending
ALT Pending
Alkaline Phosphatase Pending
Vital Signs:
Vital Signs
Temp Pulse Resp BP Pulse Ox
97.1 F 71 16 161/69 94
09/03/23 07:15 09/03/23 07:15 09/03/23 07:15 09/03/23 07:15 09/03/23 07:15
I&O
09/02/23 09/03/23 09/04/23
06:59 06:59 06:59
Intake Total 180 / 180 2770 / 2770
Output Total 825 / 825 375 / 375
Balance -645 / -645 2395 / 2395
Review of Systems
-
All other systems: Reviewed and negative
--- NOTE | 2023-09-03 09:34 | W.PN.GS2 ---
Addendum entered and electronically signed by Bulmaro Garcia MD 09/03/23 11:48:
Patient seen and examined. Agree with assessment plan as documented below.
No major complaints. Pain overall well-controlled. Most bothered by sore throat days and NGT. Passing flatus, no BM. No nausea or vomiting. Afebrile.
Gen: NAD
HEENT: NGT with light bilious output
Abd: soft, mild tenderness, mild distension, non-peritoneal, dressing with some strike through
87 y/o female POD#2 s/p ex lap, ASHELY, cecotomy/removal stone for gallstone ileus presentation
AFVSS
Doing well post op, +flatus this am
H/H stable
Hypoglycemia/Hypokalemia this am
Plan: �
clamp NGT and remove if able
IVF/electrolyte replacement
pain control
Zosyn postop for localized contamination with colotomy/stone extraction x 4 days
Ok for resumption of IV Heparin, hold PO AC's
Original Note:
Today's Communication / Plan
-
clamp trial of NGT
Assessment / Plan
-
Assessment: 87 y/o female POD#2 s/p ex lap, ASHELY, cecotomy/removal stone for gallstone ileus presentation
AFVSS
Doing well post op, +flatus this am
H/H stable
Hypoglycemia/Hypokalemia this am
Plan: pain control
clamp NGT and remove if able
IVF/electrolyte replacement
Zosyn postop for localized contamination with colotomy/stone extraction
Ok for resumption of IV Heparin, hold PO AC
Subjective Data
-
Date of Service: September 03, 2023
Patient seen and examined at bedside. Denies n/v. Passing some flatus starting this morning. No bm as of yet. C/O dry mouth and throat irritation with ngt
Objective Data
-
Intake and Output
09/02/23 09/03/23 09/04/23
06:59 06:59 06:59
Intake Total 180 / 180 2770 / 2770
Output Total 825 / 825 375 / 375
Balance -645 / -645 2395 / 2395
Intake:
Oral fluids 0 / 0 360 / 360
IV fluids (Total) 125 / 125 2150 / 2150
norm 125 / 125
IV piggybacks 50 / 50 200 / 200
Amount instilled into GI Tube ( 5 / 5 60 / 60
Total)
[place] Sump 5 / 5 60 / 60
Output:
Gastrointestinal tube output ( 75 / 75 50 / 50
Total)
[place] Sump 75 / 75 50 / 50
Urine, Voided 750 / 750 325 / 325
Vital Signs
Temp Pulse Resp BP Pulse Ox
97.1 F 71 16 161/69 94
09/03/23 07:15 09/03/23 07:15 09/03/23 07:15 09/03/23 07:15 09/03/23 07:15
Calcium 9.2 mg/dl (8.4-10.2) 09/02/23 07:04
Magnesium 2.8 mg/dl (1.6-2.3) H 09/01/23 01:23
Total Bilirubin 0.5 mg/dl (0.2-1.3) 09/02/23 07:04
Direct Bilirubin 0.1 mg/dl (0.0-0.4) 08/29/23 05:42
AST 39 U/L (14-36) H 09/02/23 07:04
ALT 102 U/L (0-35) H 09/02/23 07:04
Alkaline Phosphatase 85 U/L (38-126) 09/02/23 07:04
Total Protein 4.5 g/dl (6.3-8.2) L 09/02/23 07:04
Albumin 2.4 g/dl (3.5-5.0) L 09/02/23 07:04
Physical Exam
-
NAD AAOx3
ABD: soft, mild to moderately distended, mild TTP at incision
incision with Aquacel dressing
[2023-09-03 09:39] LABS: % Basophils 0.1 % (0-2); % Eosinophils 0.2 % (0-6); % Immature Granulocytes 0.4 % (0-0.5); % Lymphocytes 7.9 % (20.5-51.1); % Monocytes 3.7 % (1.7-9.3); % Neutrophils 87.7 % (42.2-75.2); Absolute Lymphocytes 0.7 10^3/uL (1.2-3.4); Absolute Monocytes 0.3 10^3/uL (0.1-0.6); Hematocrit 32.3 % (37.0-47.0); Hemoglobin 10.4 g/dL (12.0-16.0); Mean Corp Hgb Conc. 32.2 g/dL (33.0-37.0); Mean Corpuscular Hgb 29.2 pg (27.0-31.0); Mean Corpuscular Volume 90.7 fL (81.0-99.0); Mean Platelet Volume 9.8 fL (7.4-10.4); Nucleated Red Blood Cells % 0 %; Platelet Count 199 10^3/uL (130-400); Red Blood Cell Count 3.56 10^6/uL (4.20-5.40); White Blood Cell Count 9.1 10^3/uL (4.8-10.8)
[2023-09-03 10:11] LABS: ALT (SGPT) 95 U/L (0-35); AST (SGOT) 44 U/L (14-36); Albumin 2.3 g/dl (3.5-5.0); Alkaline Phosphatase 80 U/L (38-126); Blood Urea Nitrogen 28 mg/dl (7-17); Calcium 9.2 mg/dl (8.4-10.2); Carbon Dioxide 24 mmol/L (22-30); Chloride 113 mmol/L (98-107); Estimated Creatinine Clearance 31 ml/min; Glucose 68 mg/dl (70-99); Potassium 3.1 mmol/L (3.5-5.1); Sodium 147 mmol/L (135-145); Total Bilirubin 0.5 mg/dl (0.2-1.3); Total Protein 4.3 g/dl (6.3-8.2); eGFR 54.53
[2023-09-03 11:50] LABS: Glucose - Point of Care 83 mg/dl (70-99)
[2023-09-03] MEDS: KCL 270 MEQ IV (12:25)
[2023-09-03] MEDS: D5/0.45%NSS with KCL 20 MEQ 1000 IV (12:27)
[2023-09-03 14:07] LABS: Hematocrit 32.6 % (37.0-47.0); Hemoglobin 10.7 g/dL (12.0-16.0); Mean Corp Hgb Conc. 32.8 g/dL (33.0-37.0); Mean Corpuscular Hgb 29.2 pg (27.0-31.0); Mean Corpuscular Volume 88.8 fL (81.0-99.0); Mean Platelet Volume 9.4 fL (7.4-10.4); Platelet Count 187 10^3/uL (130-400); Red Blood Cell Count 3.67 10^6/uL (4.20-5.40); Red Cell Dist. Width 14.2 % (11.5-14.5); White Blood Cell Count 11.2 10^3/uL (4.8-10.8)
[2023-09-03 14:19] LABS: APTT 33.2 Sec (23.4-35.0)
[2023-09-03] MEDS: HEPARIN 3000 UNITS IV (14:44)
[2023-09-03] MEDS: HEPARIN 25000 UNITS/250 ML IV (14:47)
--- NOTE | 2023-09-03 14:49 | CM ---
manager market intelligence reviewed patient's chart and spoke with patient, patient with NGT, weakness CT of head ordered, physical therapy following and recommending skilled, patient does not want to discuss skilled, patient wants to return to home when stable,
and resume [facility] visiting nurses.
Plan; Home with [facility] nursing when stable. Need to review skilled again with patient closer to discharge.
[2023-09-03 18:13] LABS: Glucose - Point of Care 83 mg/dl (70-99)
[2023-09-03 21:47] LABS: APTT 58.2 Sec (23.4-35.0)
[2023-09-03 23:59] LABS: Glucose - Point of Care 132 mg/dl (70-99)
[2023-09-04] VITALS (8 sets, daily range): BP systolic 135–152; BP diastolic 55–67; PULSE 76; BMI 22.0
[2023-09-04] MEDS: NOVOLOG FLEXPEN-LOW RESISTANCE SC (00:12)
[2023-09-04] MEDS: D5/0.45%NSS with KCL 20 MEQ 1000 IV (05:24)
[2023-09-04] MEDS: ZOSYN 50 IV ×3 (05:25→18:26)
[2023-09-04 05:42] LABS: Glucose - Point of Care 175 mg/dl (70-99)
[2023-09-04] MEDS: NOVOLOG FLEXPEN-LOW RESISTANCE 1 UNITS SC (05:58)
--- NOTE | 2023-09-04 06:04 | PTCARENOTE ---
Patient is on a heparin drip. Patient had ptt ordered to be drawn at 0400 on 09/04/23 as an urgent order. Lab was still not collected at 0500. RN Called phlebotomy multiple times at 0500, 0520, and 0540 to draw the lab. [place] from phlebotomy [place] ptt
at 0600. Nursing supervisor residential Abdifatah Solorzano SALES ENGINEERING MANAGER made aware about late lab draw. Will relay information to dayshift RN. No complaints from patient, vitals stable. Patient remains on heart monitor.
[2023-09-04 06:21] LABS: Hematocrit 27.4 % (37.0-47.0); Hemoglobin 9.1 g/dL (12.0-16.0); Mean Corp Hgb Conc. 33.2 g/dL (33.0-37.0); Mean Corpuscular Hgb 28.8 pg (27.0-31.0); Mean Corpuscular Volume 86.7 fL (81.0-99.0); Mean Platelet Volume 9.3 fL (7.4-10.4); Platelet Count 143 10^3/uL (130-400); Red Blood Cell Count 3.16 10^6/uL (4.20-5.40); White Blood Cell Count 7.1 10^3/uL (4.8-10.8)
[2023-09-04 06:31] LABS: APTT 123.6 Sec (23.4-35.0)
[2023-09-04 07:06] LABS: Blood Urea Nitrogen 22 mg/dl (7-17); Calcium 8.4 mg/dl (8.4-10.2); Carbon Dioxide 22 mmol/L (22-30); Chloride 120 mmol/L (98-107); Estimated Creatinine Clearance 39 ml/min; Glucose 140 mg/dl (70-99); Potassium 3.6 mmol/L (3.5-5.1); Sodium 144 mmol/L (135-145); eGFR > 60.00
[2023-09-04] MEDS: LOPRESSOR 5 MG IV (09:54)
[2023-09-04] MEDS: NSS (PRESERVATIVE FREE) 10 ML IV ×2 (09:55→21:32)
[2023-09-04] MEDS: PROTONIX IV 40 MG IV ×2 (09:55→21:32)
[2023-09-04] MEDS: FLUSH (NSS) 1 FLUSH IV (09:57)
[2023-09-04 12:06] LABS: Glucose - Point of Care 210 mg/dl (70-99)
--- NOTE | 2023-09-04 12:43 | W.PN.GS2 ---
Today's Communication / Plan
-
Plan: begin clear liquids
Zosyn postop for localized contamination with colotomy/stone extraction
Repeat Hgb ordered. Might need to hold heparin
Advised her and her to notify the supply chain program manager that the suture was removed but to ask about the pathology
Assessment / Plan
-
Assessment: 87 y/o female POD#3 s/p ex lap, ASHELY, cecotomy/removal stone for gallstone ileus presentation
AFVSS
Doing well post op, +flatus this am
Hgb down to 9.1 g/dL and her PTT was 123.6 this am; WBC normal.
Subjective Data
-
Date of Service: September 04, 2023
She is passing flatus and had a small bowel movement. She has no pain or nausea.
The NGT was removed yesterday.
She has a suture on her left leg following a biopsy by a supply chain program manager 2 weeks ago.
Objective Data
-
Intake and Output
09/03/23 09/04/23 09/05/23
06:59 06:59 06:59
Intake Total 2770 / 2770 1070 / 1070
Output Total 375 / 375 50 / 50
Balance 2395 / 2395 1020 / 1020
Intake:
Oral fluids 360 / 360
IV fluids (Total) 2150 / 2150 720 / 720
IV piggybacks 200 / 200 350 / 350
Amount instilled into GI Tube ( 60 / 60
Total)
[place] Sump 60 / 60
Output:
Gastrointestinal tube output ( 50 / 50 50 / 50
Total)
[place] Sump 50 / 50 50 / 50
Urine, Voided 325 / 325
Vital Signs
Temp Pulse Resp BP Pulse Ox
97.6 F 63 18 152/65 96
09/04/23 11:00 09/04/23 11:00 09/04/23 11:00 09/04/23 11:00 09/04/23 11:00
Lab Results
09/04/23 06:03
09/04/23 06:03
Calcium 8.4 mg/dl (8.4-10.2) 09/04/23 06:03
Magnesium 2.8 mg/dl (1.6-2.3) H 09/01/23 01:23
Total Bilirubin 0.5 mg/dl (0.2-1.3) 09/03/23 07:16
Direct Bilirubin 0.1 mg/dl (0.0-0.4) 08/29/23 05:42
AST 44 U/L (14-36) H 09/03/23 07:16
ALT 95 U/L (0-35) H 09/03/23 07:16
Alkaline Phosphatase 80 U/L (38-126) 09/03/23 07:16
Total Protein 4.3 g/dl (6.3-8.2) L 09/03/23 07:16
Albumin 2.3 g/dl (3.5-5.0) L 09/03/23 07:16
Physical Exam
-
NAD
Abd: soft and nontender. The incision is clean.
The single suture was removed from the left leg; the incision is clean
[2023-09-04] MEDS: NOVOLOG FLEXPEN-LOW RESISTANCE 2 UNITS SC (13:13)
--- NOTE | 2023-09-04 14:01 | W.PN.HOSP.TC ---
Addendum entered and electronically signed by Genesis Dc MD 09/04/23 14:11:
*with weight increase, will resume Torsemide today
Original Note:
Today's Communication/Plan
-
clears
resume oral medications including methimazole + prednisone 20
stop fluids
likely resume torsemide tomorrow
Assessment / Plan
Assessment / Plan
Physical exam:
General: Acutely ill
HEENT: Normocephalic, Atraumatic and Moist Mucous Membranes
Respiratory: Clear to Auscultation; Negative Wheezes, Rales or Rhonchi
Cardiac: Regular Rhythm and S1/S2
GI: Soft, Nontender and Distended, bowel sounds hypodynamic. Postop findings.
Musculoskeletal: No Clubbing, No Cyanosis and No Edema
Neuro: Awake, Alert and Oriented, right lower extremity weakness.
Psych: Calm
A/P:
#Small bowel obstruction/gallstone ileus status post exploratory laparotomy, ASHELY, cecotomy and removal of stone for gallstone ileus on 08/31:
-s/p NGT, removed this AM and advanced to clears
-stop IVF
-Continue IV antibiotics, Zosyn
-Surgery consult and follow-up appreciated
-Surgery recommend restart heparin gtt for now
#Right lower extremity weakness
-CT of the head unremarkable last evening
-Will obtain MRI of the brain (history has been inconsistent, unclear if new or old)
-Surgery cleared to start heparin drip today.
# Mild hyponatremia
Resolved
# Hypokalemia
Resolved
# Elevated LFTs
Improving
# Slightly elevated lipase not related to pancreatitis
# Abnormal thyroid function test-Dr Encinas has reached out to .
Plan to start methimazole 20 mg daily and prednisone 20 mg daily for 2 weeks. Patient needs to be seen by endocrine within [address] Encinas advised patient and that they need to inform the office that heat treater helper wanted him to be seen within 2 weeks to get an appointment.
Pharmacy does not have the rectal formulation of methimazole therefore on 20 mg orally when able to take oral
Using iv Decadron while n.p.o.
# Paroxysmal atrial fibrillation on Eliquis and metoprolol as outpatient
Also on amiodarone 200 mg daily when able to take oral
Continue metoprolol and Eliquis when able to take oral or heparin drip when able to use it--> plan to start heparin drip today
For now IV Lopressor as needed until able to take oral.
Continue telemetry
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
Echo 08/04/2023-moderately reduced ejection fraction 40%. Global hypokinesis. Aortic sclerosis without stenosis. Moderate AI
When able to take oral-->on metoprolol, torsemide as outpatient
-resume metoprolol
-stop fluids
-resume Torsemide tomorrow
# Hypertension-On metoprolol when able to take oral
# Hyperlipidemia-patient was on atorvastatin when able to take oral
# Diabetes-was on metformin thousand twice daily
Hemoglobin A1c 7.6
Accu-Cheks and sliding scale coverage
# VANESSA on CKD stage III-IV fluids while n.p.o.
Follow creatinine

# Patient is on prednisone for Bullous Pemphigoid
10 mg alternating with 5 mg every other day
resume prednisone 20 (recommended dose given initiation methimazole)
# Pulmonary hypertension
# Valvular heart disease-moderate TR, moderate AI
# History of small bowel perforation with ex small bowel resection with primary anastomosis and abdominal washout February 2023
# Pulmonary hypertension
# Valvular heart disease-moderate TR, moderate AI
# Left upper extremity PICC line associated DVT in the past
# Ambulatory dysfunction-uses a walker
Spinal stenosis
# Migraines
# Hypoalbuminemia
# DVT prophylaxis
# Full code
Anticipated Discharge: > 48 hours
Subjective/Interval History
-
Date of Service: September 04, 2023
feeling better today
NGT is out
Objective Data
-
Labs:
Laboratory Results
09/04/23 09/04/23 09/04/23
06:03 12:30 13:44
WBC 7.1
Hgb 9.1 L Pending
Hct 27.4 L
Plt Count 143 D
APTT 123.6 H Pending
Sodium 144
Potassium 3.6
Chloride 120 H
Carbon Dioxide 22
BUN 22 H
Creatinine 0.8
Glucose 140 H
Calcium 8.4
Vital Signs:
Vital Signs
Temp Pulse Resp BP Pulse Ox
97.6 F 63 18 152/65 96
09/04/23 11:00 09/04/23 11:00 09/04/23 11:00 09/04/23 11:00 09/04/23 11:00
I&O
09/03/23 09/04/23 09/05/23
06:59 06:59 06:59
Intake Total 2770 / 2770 1070 / 1070
Output Total 375 / 375 50 / 50
Balance 2395 / 2395 1020 / 1020
Review of Systems
-
History Source: Patient
All other systems: Reviewed and negative
Physical Exam
-
General: Well Developed, Well Nourished and No Apparent Distress
HEENT: Normocephalic and Atraumatic
Respiratory: Clear to Auscultation; Negative Wheezes or Rhonchi
Cardiac: Regular Rhythm and S1/S2; Negative Murmur
GI: Soft, Nontender, Nondistended and Normal Bowel Sounds
Musculoskeletal: No Clubbing, No Cyanosis and No Edema
Neuro: Awake
Psych: Calm
Data Reviewed
-
Diagnostic Radiology: Report Reviewed by me
Labs: Labs Reviewed by me
[2023-09-04 14:13] LABS: Hemoglobin 10.2 g/dL (12.0-16.0)
--- NOTE | 2023-09-04 14:32 | PTCARENOTE ---
Heparin drip maintained per order/protocol. Awaiting PTT results.
[2023-09-04] MEDS: KCL 270 MEQ IV (14:35)
[2023-09-04 14:40] LABS: APTT 79.8 Sec (23.4-35.0)
[2023-09-04] MEDS: DEMADEX 20 MG PO (14:41)
[2023-09-04] MEDS: DELTASONE 20 MG PO (14:41)
--- NOTE | 2023-09-04 16:40 | PTCARENOTE ---
Patient sitting in chair after receiving PT/OT a few minutes prior. Patient rang call renner and requested to use bedside commode to void. Patient able to stand with heavy assist of 2 and required repeated instruction where to place hands on walker.
Patient took 1 step forward, but was unable to bear her own weight and her knees bent. Patient lowered by nursing staff to sit on floor to avoid injury. No loss of consciousness occurred. Patient remained alert and was assisted into bed by
additional nursing staff. Vital signs and bedside glucose obtained. Patient voided on bedpan large amount of venkat urine. Patient instructed learning solutions specialist renner use and verbalizes understanding.
[2023-09-04 17:03] LABS: Glucose - Point of Care 280 mg/dl (70-99)
[2023-09-04] MEDS: NOVOLOG FLEXPEN-LOW RESISTANCE 3 UNITS SC (18:25)
[2023-09-04] MEDS: LIPITOR 10 MG PO (18:25)
[2023-09-04] MEDS: TOPROL XL 50 MG PO (21:32)
[2023-09-04 21:42] LABS: APTT 91.1 Sec (23.4-35.0)
[2023-09-04 21:49] LABS: Glucose - Point of Care 311 mg/dl (70-99)
[2023-09-04] MEDS: NOVOLOG FLEXPEN 5 UNITS SC (22:16)
[2023-09-05] MEDS: ZOSYN 50 IV ×5 (00:11→23:03)
[2023-09-05 00:15] LABS: Glucose - Point of Care 295 mg/dl (70-99)
[2023-09-05 03:30] VITALS: BP 134/63
[2023-09-05] MEDS: HEPARIN 25000 UNITS/250 ML IV (04:53)
[2023-09-05 05:58] VITALS: BMI 22.8
[2023-09-05 06:22] LABS: Hematocrit 25.9 % (37.0-47.0); Hemoglobin 8.8 g/dL (12.0-16.0); Mean Corpuscular Hgb 28.9 pg (27.0-31.0); Mean Corpuscular Volume 84.9 fL (81.0-99.0); Mean Platelet Volume 9.7 fL (7.4-10.4); Platelet Count 144 10^3/uL (130-400); Red Blood Cell Count 3.05 10^6/uL (4.20-5.40); Red Cell Dist. Width 13.9 % (11.5-14.5); White Blood Cell Count 6.6 10^3/uL (4.8-10.8)
[2023-09-05 06:39] LABS: APTT 114.2 Sec (23.4-35.0)
[2023-09-05 06:52] LABS: Blood Urea Nitrogen 17 mg/dl (7-17); Calcium 7.8 mg/dl (8.4-10.2); Carbon Dioxide 22 mmol/L (22-30); Chloride 111 mmol/L (98-107); Estimated Creatinine Clearance 45 ml/min; Glucose 235 mg/dl (70-99); Magnesium 1.8 mg/dl (1.6-2.3); Sodium 134 mmol/L (135-145); eGFR > 60.00
[2023-09-05 08:00] VITALS: BP 107/50
[2023-09-05] MEDS: TAPAZOLE 20 MG PO (08:47)
[2023-09-05] MEDS: DELTASONE 20 MG PO (08:48)
[2023-09-05] MEDS: PACERONE 200 MG PO (08:48)
[2023-09-05] MEDS: NSS (PRESERVATIVE FREE) 10 ML IV ×2 (08:49→21:57)
[2023-09-05] MEDS: PROTONIX IV 40 MG IV ×2 (08:49→21:57)
[2023-09-05] MEDS: FLUSH (NSS) 1 FLUSH IV (08:51)
[2023-09-05] MEDS: DEMADEX 20 MG PO (09:06)
[2023-09-05 09:17] LABS: Glucose - Point of Care 257 mg/dl (70-99)
[2023-09-05] MEDS: NOVOLOG FLEXPEN-LOW RESISTANCE 3 UNITS SC ×2 (09:20→13:07)
[2023-09-05 11:37] LABS: Glucose - Point of Care 261 mg/dl (70-99)
[2023-09-05 12:09] VITALS: BP 132/55
--- NOTE | 2023-09-05 12:18 | W.PN.HOSP.TC ---
Today's Communication/Plan
-
-F/U MRI results
-repeat Hg
-heparin gtt resumed if Hg stable and MRI without stroke
-continue oral meds
-diet advancement per surgery
-PT/OT
Assessment / Plan
Assessment / Plan
A/P:
#Small bowel obstruction/gallstone ileus status post exploratory laparotomy, ASHELY, cecotomy and removal of stone for gallstone ileus on 08/31:
-s/p NGT, removed 09/03 AM and advanced to clears - patient tolerating
-IVF off 09/03 and Diuretic resumed (weight gain)
-Continue IV antibiotics, Zosyn
-Surgery consult and follow-up appreciated
#Right lower extremity weakness (unclear history if acute)
-CT of the head unremarkable
-F/U MRI results (performed this AM)
# Mild hyponatremia
Resolved
# Hypokalemia
Resolved
#Anemia
-no e/o bleeding
-repeat Hg now, Hg fluctuating on labs
# Elevated LFTs
Improving
# Slightly elevated lipase not related to pancreatitis
# Abnormal thyroid function test-Dr Encinas has reached out to .
Plan to start methimazole 20 mg daily and prednisone 20 mg daily for 2 weeks. Patient needs to be seen by endocrine within [address] Encinas advised patient and that they need to inform the office that controlled area checker wanted him to be seen within 2 weeks to get an appointment.
Methimazole and prednisone 20 initiated on 09/03 when patient taking PO
# Paroxysmal atrial fibrillation on Eliquis and metoprolol as outpatient
-DIE MAKER Amiodarone, Metoprolol resumed
-IV heparin gtt for now, resume Eliquis when cleared by surgery
-monitor on telemetry
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
Echo 08/04/2023-moderately reduced ejection fraction 40%. Global hypokinesis. Aortic sclerosis without stenosis. Moderate AI
When able to take oral-->on metoprolol, torsemide as outpatient
-resume metoprolol
-DIE MAKER Torsemide resumed
# Hypertension-On metoprolol when able to take oral
# Hyperlipidemia-patient was on atorvastatin when able to take oral
# Diabetes-was on metformin thousand twice daily
Hemoglobin A1c 7.6
Accu-Cheks and sliding scale coverage
# VANESSA on CKD stage III-IV fluids while n.p.o.
Follow creatinine

# Patient is on prednisone for Bullous Pemphigoid
10 mg alternating with 5 mg every other day
resume prednisone 20 (recommended dose given initiation methimazole)
# Pulmonary hypertension
# Valvular heart disease-moderate TR, moderate AI
# History of small bowel perforation with ex small bowel resection with primary anastomosis and abdominal washout February 2023
# Pulmonary hypertension
# Valvular heart disease-moderate TR, moderate AI
# Left upper extremity PICC line associated DVT in the past
# Ambulatory dysfunction-uses a walker
Spinal stenosis
# Migraines
# Hypoalbuminemia
# DVT prophylaxis
# Full code
Anticipated Discharge: > 48 hours
Subjective/Interval History
-
Date of Service: September 05, 2023
feeling better
tolerating clears
feels less swollen
LUE feels weaker
Objective Data
-
Labs:
Laboratory Results
09/05/23 09/05/23 09/05/23
06:06 12:13 13:00
WBC 6.6
Hgb 8.8 L Pending
Hct 25.9 L
Plt Count 144
APTT 114.2 H Cancelled
Sodium 134 L D
Potassium 4.0
Chloride 111 H
Carbon Dioxide 22
BUN 17
Creatinine 0.7
Glucose 235 H
Calcium 7.8 L
Vital Signs:
Vital Signs
Temp Pulse Resp BP Pulse Ox
97.5 F 54 18 132/55 98
09/05/23 12:09 09/05/23 12:09 09/05/23 12:09 09/05/23 12:09 09/05/23 12:09
I&O
09/04/23 09/05/23 09/06/23
06:59 06:59 06:59
Intake Total 1070 / 1070 2438 / 2438
Output Total 50 / 50
Balance 1020 / 1020 2438 / 2438
Review of Systems
-
History Source: Patient
All other systems: Reviewed and negative
Physical Exam
-
General: Well Developed, Well Nourished and No Apparent Distress
HEENT: Normocephalic and Atraumatic
Respiratory: Clear to Auscultation; Negative Wheezes or Rhonchi
Cardiac: Regular Rhythm and S1/S2; Negative Murmur
GI: Soft and Nontender
Musculoskeletal: No Clubbing, No Cyanosis and Other (some upper extremity edema)
Skin: Warm and Dry; Negative Rash
Neuro: Awake
Psych: Calm
Data Reviewed
-
Diagnostic Radiology: Report Reviewed by me
Labs: Labs Reviewed by me
--- NOTE | 2023-09-05 12:26 | W.PN.CRS1 ---
Today's Communication / Plan
-
fulls
recheck h/h
hold heparin gtt
Assessment/Plan
-
Assessment:� 87 y/o female POD#4 s/p ex lap, ASHELY, cecotomy/removal stone for gallstone ileus presentation
AFVSS
Doing well post op, +flatus this am
Hgb down to 9.1 g/dL and her PTT was 123.6 this am; WBC normal.
Plan: � Advance to full liquids.
Zosyn postop for localized contamination with colotomy/stone extraction
Hgb is 8.8 this morning. Hold heparin gtt for now and recheck H/H this afternoon.
Subjective Data
Subjective Data
Date of Service: September 05, 2023
Patient states she has flatus. She tolerated clears without issues. She is hungry. She has no pain.
Objective Data
-
Vital Signs
Temp Pulse Resp BP Pulse Ox
97.5 F 54 18 132/55 98
09/05/23 12:09 09/05/23 12:09 09/05/23 12:09 09/05/23 12:09 09/05/23 12:09
Intake & Output
09/04/23 09/05/23 09/06/23
06:59 06:59 06:59
Intake Total 1070 / 1070 2438 / 2438
Output Total 50 / 50
Balance 1020 / 1020 2438 / 2438
Intake:
Oral fluids 1440 / 1440
IV fluids (Total) 720 / 720 550 / 550
IV piggybacks 350 / 350 448 / 448
Output:
Gastrointestinal tube output ( 50 / 50
Total)
[place] Sump 50 / 50
Other:
Number of approximated MODERATE 3
amounts of urine
Number of approximated LARGE 1
amounts of urine
Lab Results
09/05/23 06:06
Physical Exam
-
General: No Acute Distress and AOx3
Abdomen: Soft, Non Distended and Non Tender
Skin: Warm and Dry
[2023-09-05 13:15] LABS: Hematocrit 26.8 % (37.0-47.0); Hemoglobin 9.2 g/dL (12.0-16.0)
[2023-09-05 15:45] VITALS: BP 135/59
[2023-09-05 16:35] LABS: Glucose - Point of Care 356 mg/dl (70-99)
[2023-09-05] MEDS: NOVOLOG FLEXPEN-LOW RESISTANCE 5 UNITS SC (17:02)
[2023-09-05] MEDS: LIPITOR 10 MG PO (18:13)
[2023-09-05 19:41] VITALS: BP 134/54
[2023-09-05 21:20] LABS: Glucose - Point of Care 422 mg/dl (70-99)
--- NOTE | 2023-09-05 21:20 | PTCARENOTE ---
Addendum entered by Zion Bernal RN 09/06/23 06:03:
Pt fingerstick rechecked 0600. Glucose result 232. Will continue to monitor glucose.
Addendum entered by Zion Bernal RN 09/06/23 03:29:
Pt fingerstick rechecked 0300. Glucose result 308. Pt AAOx3. Ranjit Lovell made aware; 4 units insulin ordered. Will recheck in two hours.
Addendum entered by Zion Bernal RN 09/06/23 02:08:
Pt fingerstick glucose rechecked 0027, resulted with 405. STAT blood glucose ordered, resulted with 321. Pt AAOx3. Ranjit Lovell made aware; 4 units insulin ordered. Will recheck in 2 hours.
Original Note:
Pt fingerstick glucose came back 422. STAT blood glucose drawn, glucose 333. Pt AAOx3. Ranjit Lovell made aware, 4 units insulin ordered. Will recheck in 2 hours.
[2023-09-05] MEDS: TOPROL XL 50 MG PO (21:57)
[2023-09-05 22:07] LABS: Glucose 333 mg/dl (70-99)
[2023-09-05] MEDS: NOVOLOG FLEXPEN 4 UNITS SC (22:40)
[2023-09-05 22:56] VITALS: BP 137/51
[2023-09-06] VITALS (7 sets, daily range): BP systolic 120–138; BP diastolic 48–57; PULSE 53; O2SAT 97; BMI 22.6
[2023-09-06 00:29] LABS: Glucose - Point of Care 405 mg/dl (70-99)
[2023-09-06 01:00] LABS: Glucose 321 mg/dl (70-99)
[2023-09-06] MEDS: NOVOLOG FLEXPEN 4 UNITS SC ×2 (01:34→04:07)
[2023-09-06 03:03] LABS: Glucose - Point of Care 308 mg/dl (70-99)
[2023-09-06] MEDS: ZOSYN 50 IV ×4 (05:51→23:04)
[2023-09-06 05:57] LABS: Glucose - Point of Care 232 mg/dl (70-99)
[2023-09-06 07:27] LABS: Glucose - Point of Care 172 mg/dl (70-99)
[2023-09-06] MEDS: TAPAZOLE 20 MG PO (07:51)
[2023-09-06] MEDS: PACERONE 200 MG PO (07:53)
[2023-09-06] MEDS: DELTASONE 20 MG PO (07:53)
[2023-09-06] MEDS: DEMADEX 20 MG PO (07:54)
[2023-09-06] MEDS: PROTONIX IV 40 MG IV ×2 (07:55→21:38)
[2023-09-06] MEDS: NSS (PRESERVATIVE FREE) 10 ML IV ×2 (07:55→21:38)
[2023-09-06] MEDS: NOVOLOG FLEXPEN-LOW RESISTANCE 1 UNITS SC (07:56)
--- NOTE | 2023-09-06 09:58 | W.PN.GS2 ---
Today's Communication / Plan
-
- Advance diet to soft foods
- OOB with assistance
- Heparin drip held pending Hgb
Assessment / Plan
-
Assessment: 87 y/o female POD#5 status post exploratory laparotomy + cecotomy and stone removal for gallstone ileus
Afebrile, vital signs normal. Hgb improved from 8.8 to 9.2 over the past two days, morning labs pending.
Expectant post op course. Symptoms improving, tolerating full liquid diet, passing flatus, 3 loose bowel movements overnight
Dressing changed
- Advance diet to soft foods.
Subjective Data
-
Date of Service: September 06, 2023
Symptoms continue to improve. Pt had 3 loose bowel movements overnight, good appetite, no nausea or vomiting, no abdominal pain. Passing flatus. Tolerating full liquid diet.
Objective Data
-
Intake and Output
09/05/23 09/06/23 09/07/23
06:59 06:59 06:59
Intake Total 2438 / 2438 364.75 / 364.75 100 / 100
Output Total 750 / 750
Balance 2438 / 2438 -385.25 / -385.25 100 / 100
Intake:
Oral fluids 1440 / 1440 240 / 240
IV fluids (Total) 550 / 550
IV piggybacks 448 / 448 124.75 / 124.75 100 / 100
Output:
Urine, Voided 750 / 750
Other:
Number of approximated MODERATE 3 1
amounts of urine
Number of approximated LARGE 1 1
amounts of urine
How many times incontinent 2
SATURATED amount urine
Number of unmeasured liquid
stools
Rectum 1
Vital Signs
Temp Pulse Resp BP Pulse Ox
97.9 F 53 16 120/52 98
09/06/23 07:44 09/06/23 07:44 09/06/23 07:44 09/06/23 07:44 09/06/23 07:44
Calcium 7.8 mg/dl (8.4-10.2) L 09/05/23 06:06
Magnesium 1.8 mg/dl (1.6-2.3) 09/05/23 06:06
Total Bilirubin 0.5 mg/dl (0.2-1.3) 09/03/23 07:16
Direct Bilirubin 0.1 mg/dl (0.0-0.4) 08/29/23 05:42
AST 44 U/L (14-36) H 09/03/23 07:16
ALT 95 U/L (0-35) H 09/03/23 07:16
Alkaline Phosphatase 80 U/L (38-126) 09/03/23 07:16
Total Protein 4.3 g/dl (6.3-8.2) L 09/03/23 07:16
Albumin 2.3 g/dl (3.5-5.0) L 09/03/23 07:16
Physical Exam
-
General: Awake, alert, in no acute distress
GI: Midline incision intact, soft, non-tender, non-distended, no guarding or rigidity
Extremities: No LE edema or erythema
[2023-09-06 10:40] LABS: Hematocrit 29.9 % (37.0-47.0); Hemoglobin 10.2 g/dL (12.0-16.0); Mean Corp Hgb Conc. 34.1 g/dL (33.0-37.0); Mean Corpuscular Hgb 28.6 pg (27.0-31.0); Mean Corpuscular Volume 83.8 fL (81.0-99.0); Mean Platelet Volume 10.5 fL (7.4-10.4); Platelet Count 176 10^3/uL (130-400); Red Blood Cell Count 3.57 10^6/uL (4.20-5.40); Red Cell Dist. Width 13.8 % (11.5-14.5); White Blood Cell Count 10.7 10^3/uL (4.8-10.8)
[2023-09-06 10:51] LABS: Blood Urea Nitrogen 16 mg/dl (7-17); Calcium 8.4 mg/dl (8.4-10.2); Carbon Dioxide 19 mmol/L (22-30); Chloride 108 mmol/L (98-107); Estimated Creatinine Clearance 45 ml/min; Glucose 100 mg/dl (70-99); Magnesium 1.5 mg/dl (1.6-2.3); Potassium 3.1 mmol/L (3.5-5.1); Sodium 132 mmol/L (135-145); eGFR > 60.00
--- NOTE | 2023-09-06 10:53 | CM ---
paper mill manager reviewed patients chart and spoke with patient and patient's spouse this am and reviewed recommendation for skilled placement, patient's spouse is not agreeable to skilled placement as he states that patient was at [facility] for one
month for skilled rehab. paper mill manager to follow with patient and discuss skilled placement further with patient and spouse.
Plan; Patient and spouse are refusing skilled placement.
[2023-09-06 12:03] LABS: Glucose - Point of Care 213 mg/dl (70-99)
[2023-09-06] MEDS: NOVOLOG FLEXPEN-LOW RESISTANCE 2 UNITS SC (12:32)
--- NOTE | 2023-09-06 16:08 | W.PN.HOSP.TC ---
Today's Communication/Plan
-
Restart heparin drip if okay with surgeon
Soft diet if okay with surgeon
Restart metformin
Add Prandin
Follow labs
Replace potassium and magnesium
Needs rehab at discharge-case management to send referral and talk to
Assessment / Plan
Assessment / Plan
sitting in a chair.
No discomfort
Lap wound
LE no edema
A/P:
#Small bowel obstruction/gallstone ileus status post exploratory laparotomy, ASHELY, cecotomy and removal of stone for gallstone ileus on 08/31:
-s/p NGT, removed 09/03 AM and advanced diet - patient tolerating
-IVF off 09/03 and Diuretic resumed (weight gain)
-Continue IV antibiotics, Zosyn
-Surgery consult and follow-up appreciated
#Right lower extremity weakness (unclear history if acute)
-CT of the head unremarkable
-MRI-no acute changes. Moderate volume loss and moderate leukoaraiosis consistent with chronic small vessel disease. Moderate degenerative disc joint disease and cervical spine. Moderate mastoiditis bilaterally.
# Mild hyponatremia
Torsemide and follow
# Hypokalemia
Replace
#Hypomagnesemia- Replace
#Anemia
-no e/o bleeding
-repeat Hg now, Hg fluctuating on labs
# Elevated LFTs
Improving
# Slightly elevated lipase not related to pancreatitis
# Abnormal thyroid function test-Dr Encinas has reached out to .
Plan to start methimazole 20 mg daily and prednisone 20 mg daily for 2 weeks. Patient needs to be seen by endocrine within [address] Encinas advised patient and that they need to inform the office that geoscience professor wanted him to be seen within 2 weeks to get an appointment.
Methimazole and prednisone 20 initiated on 09/03 when patient taking PO
# Paroxysmal atrial fibrillation on Eliquis and metoprolol as outpatient
-SOUND EFFECTS SUPERVISOR Amiodarone, Metoprolol resumed
-IV heparin gtt restart if Ok with surgeon and , resume Eliquis when cleared by surgery
-monitor on telemetry
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
Echo 08/04/2023-moderately reduced ejection fraction 40%. Global hypokinesis. Aortic sclerosis without stenosis. Moderate AI
When able to take oral-->on metoprolol, torsemide as outpatient
-Resume metoprolol
-SOUND EFFECTS SUPERVISOR Torsemide resumed
# Hypertension-On metoprolol
# Hyperlipidemia-Atorvastatin
# Diabetes-was on metformin thousand twice daily
Restarted
Hemoglobin A1c 7.6
Also add Prandin before meals
Accu-Cheks and sliding scale coverage
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
Follow creatinine

# Patient is on prednisone for Bullous Pemphigoid
10 mg alternating with 5 mg every other day
resumed prednisone 20 (recommended dose given initiation methimazole)
# Pulmonary hypertension
# Valvular heart disease-moderate TR, moderate AI
# History of small bowel perforation with ex small bowel resection with primary anastomosis and abdominal washout February 2023
# Pulmonary hypertension
# Valvular heart disease-moderate TR, moderate AI
# Left upper extremity PICC line associated DVT in the past
# Ambulatory dysfunction-uses a walker
Spinal stenosis
# Migraines
# Hypoalbuminemia
# DVT prophylaxis
# Full code
D/W at bed side
D/W Gen Surgery
Anticipated Discharge: 24 - 48 hours
Subjective/Interval History
-
Date of Service: September 06, 2023
Objective Data
-
Labs:
Laboratory Results
09/06/23
09:25
WBC 10.7
Hgb 10.2 L
Hct 29.9 L
Plt Count 176 D
Sodium 132 L
Potassium 3.1 L
Chloride 108 H
Carbon Dioxide 19 L
BUN 16
Creatinine 0.7
Glucose 100 H
Calcium 8.4
Vital Signs:
Vital Signs
Temp Pulse Resp BP Pulse Ox
97.7 F 60 16 126/57 98
09/06/23 15:56 09/06/23 15:56 09/06/23 15:56 09/06/23 15:56 09/06/23 15:56
I&O
09/05/23 09/06/23 09/07/23
06:59 06:59 06:59
Intake Total 2438 / 2438 364.75 / 364.75 100 / 100
Output Total 750 / 750
Balance 2438 / 2438 -385.25 / -385.25 100 / 100
[2023-09-06] MEDS: MAGNESIUM SULFATE 50 IV (16:44)
[2023-09-06] MEDS: KCL 40 MEQ PO (16:44)
[2023-09-06] MEDS: GLUCOPHAGE 1000 MG PO (16:46)
[2023-09-06] MEDS: LIPITOR 10 MG PO (16:46)
[2023-09-06 17:09] LABS: Glucose - Point of Care 331 mg/dl (70-99)
[2023-09-06] MEDS: PRANDIN 0.5 MG PO (17:19)
[2023-09-06] MEDS: NOVOLOG FLEXPEN-LOW RESISTANCE 4 UNITS SC (17:20)
[2023-09-06] MEDS: KCL 270 MEQ IV (18:48)
[2023-09-06] MEDS: TOPROL XL 50 MG PO (21:38)
[2023-09-06 22:35] LABS: Glucose - Point of Care 370 mg/dl (70-99)
[2023-09-06] MEDS: LOVENOX 40 MG SC (23:04)
[2023-09-07 03:18] VITALS: BP 123/54
[2023-09-07] MEDS: ZOSYN 50 IV ×4 (05:50→22:57)
[2023-09-07 06:00] VITALS: BMI 22.9
[2023-09-07 07:40] VITALS: BP 134/52
[2023-09-07 07:44] LABS: Glucose - Point of Care 204 mg/dl (70-99)
--- NOTE | 2023-09-07 08:14 | W.PN.GS2 ---
Addendum entered and electronically signed by Bulmaro Garcia MD 09/07/23 08:21:
-- OK to resume Hep gtt is Hb stable on AM labs
Original Note:
Today's Communication / Plan
-
- Soft food diet
- Please call with any questions or concerns
- F/u Dr. Singh as outpatient
Assessment / Plan
-
Assessment: 87 y/o female POD#6 status post exploratory laparotomy + cecotomy and stone removal for gallstone ileus
Afebrile, vital signs normal. Hgb this AM pending, no signs of bleeding
Expectant post op course. Passing flatus and BMs
Dressing changed
- Soft food diet
- Please call with any questions or concerns
- F/u Dr. Singh as outpatient
Subjective Data
-
Date of Service: September 07, 2023
No complaints. Tolerated soft diet, no nausea or vomiting. Passing flatus and stools. Denies any bloody or dark tarry stools. Afebrile.
Objective Data
-
Intake and Output
09/06/23 09/07/23 09/08/23
06:59 06:59 06:59
Intake Total 364.75 / 364.75 2199
Output Total 750 / 750
Balance -385.25 / -385.25 2199
Intake:
Oral fluids 240 / 240 2099 / 2099
IV piggybacks 124.75 / 124.75 100 / 100
Output:
Urine, Voided 750 / 750
Other:
Number of approximated MODERATE 1 2
amounts of urine
Number of approximated LARGE 1 2
amounts of urine
How many times incontinent 2
SATURATED amount urine
Number of unmeasured liquid
stools
Rectum 1
Vital Signs
Temp Pulse Resp BP Pulse Ox
97.7 F 79 16 134/52 97
09/07/23 07:40 09/07/23 07:40 09/07/23 07:40 09/07/23 07:40 09/07/23 07:40
Calcium 8.4 mg/dl (8.4-10.2) 09/06/23 09:25
Magnesium 1.5 mg/dl (1.6-2.3) L 09/06/23 09:25
Total Bilirubin 0.5 mg/dl (0.2-1.3) 09/03/23 07:16
Direct Bilirubin 0.1 mg/dl (0.0-0.4) 08/29/23 05:42
AST 44 U/L (14-36) H 09/03/23 07:16
ALT 95 U/L (0-35) H 09/03/23 07:16
Alkaline Phosphatase 80 U/L (38-126) 09/03/23 07:16
Total Protein 4.3 g/dl (6.3-8.2) L 09/03/23 07:16
Albumin 2.3 g/dl (3.5-5.0) L 09/03/23 07:16
Physical Exam
-
Gen: NAD
Abd: soft, NT/ND, non-peritoneal, midline c/d/i
[2023-09-07 08:21] LABS: Hematocrit 27.5 % (37.0-47.0); Hemoglobin 9.7 g/dL (12.0-16.0); Mean Corp Hgb Conc. 35.3 g/dL (33.0-37.0); Mean Corpuscular Hgb 29.5 pg (27.0-31.0); Mean Corpuscular Volume 83.6 fL (81.0-99.0); Mean Platelet Volume 10.2 fL (7.4-10.4); Platelet Count 173 10^3/uL (130-400); Red Blood Cell Count 3.29 10^6/uL (4.20-5.40); Red Cell Dist. Width 13.7 % (11.5-14.5); White Blood Cell Count 7.6 10^3/uL (4.8-10.8)
[2023-09-07] MEDS: NSS (PRESERVATIVE FREE) 10 ML IV ×2 (08:21→22:50)
[2023-09-07] MEDS: PROTONIX IV 40 MG IV ×2 (08:22→22:50)
[2023-09-07] MEDS: GLUCOPHAGE 1000 MG PO ×2 (08:23→16:55)
[2023-09-07] MEDS: PACERONE 200 MG PO (08:23)
[2023-09-07] MEDS: TAPAZOLE 20 MG PO (08:24)
[2023-09-07] MEDS: DELTASONE 20 MG PO (08:24)
[2023-09-07] MEDS: PRANDIN 0.5 MG PO ×3 (08:24→16:55)
[2023-09-07] MEDS: DEMADEX 20 MG PO (08:25)
[2023-09-07] MEDS: NOVOLOG FLEXPEN-LOW RESISTANCE 2 UNITS SC (08:25)
[2023-09-07 08:42] LABS: ALT (SGPT) 38 U/L (0-35); AST (SGOT) 19 U/L (14-36); Albumin 1.9 g/dl (3.5-5.0); Alkaline Phosphatase 88 U/L (38-126); Blood Urea Nitrogen 13 mg/dl (7-17); Carbon Dioxide 22 mmol/L (22-30); Chloride 107 mmol/L (98-107); Estimated Creatinine Clearance 45 ml/min; Glucose 170 mg/dl (70-99); Potassium 3.5 mmol/L (3.5-5.1); Sodium 131 mmol/L (135-145); Total Bilirubin 0.3 mg/dl (0.2-1.3); Total Protein 3.9 g/dl (6.3-8.2); eGFR > 60.00
[2023-09-07] MEDS: LOVENOX 55 MG SC ×2 (09:49→22:54)
[2023-09-07 11:36] LABS: Glucose - Point of Care 195 mg/dl (70-99)
[2023-09-07] MEDS: NOVOLOG FLEXPEN-LOW RESISTANCE 1 UNITS SC (12:00)
[2023-09-07 12:01] VITALS: BP 142/59
--- NOTE | 2023-09-07 12:04 | W.PN.HOSP.TC ---
Today's Communication/Plan
-
Lovenox for now
Restart Eliquis when okay with surgeon
Diet changed to diabetic diet
Sugars are better
Discharge planning
Assessment / Plan
Assessment / Plan
Didnt sleep well last night
CVS Si S2 , Sm RHB
Chest Clear
Abd- Lap wound
LE no edema
A/P:
#Small bowel obstruction/gallstone ileus status post exploratory laparotomy, ASHELY, cecotomy and removal of stone for gallstone ileus on 08/31:
-s/p NGT, removed 09/03 AM and advanced diet - patient tolerating
-IVF off 09/03 and Diuretic resumed (weight gain)
-Continue IV antibiotics, Zosyn
-Surgery consult and follow-up appreciated
#Right lower extremity weakness (unclear history if acute)
-CT of the head unremarkable
-MRI-no acute changes. Moderate volume loss and moderate leukoaraiosis consistent with chronic small vessel disease. Moderate degenerative disc joint disease and cervical spine. Moderate mastoiditis bilaterally.
# Mild hyponatremia
Check serum and urine osm
Torsemide and follow
# Hypokalemia
Replace PRN
#Hypomagnesemia- Replaced
#Anemia
-no e/o bleeding
-repeat Hg now, Hg stable
# Elevated LFTs
Improving
# Slightly elevated lipase not related to pancreatitis
# Abnormal thyroid function test-Dr Encinas has reached out to .
Plan to start methimazole 20 mg daily and prednisone 20 mg daily for 2 weeks. Patient needs to be seen by endocrine within [address] Encinas advised patient and that they need to inform the office that control and recovery special tactics wanted him to be seen within 2 weeks to get an appointment.
Methimazole and prednisone 20 initiated on 09/03 when patient taking PO
Continue till September 17 and thehn need to see Endocrine for further Recommendations
# Paroxysmal atrial fibrillation on Eliquis and metoprolol as outpatient
-MOLD HOLDER Amiodarone, Metoprolol resumed
-Lovenox started , resume Eliquis when cleared by surgery
-monitor on telemetry
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
Echo 08/04/2023-moderately reduced ejection fraction 40%. Global hypokinesis. Aortic sclerosis without stenosis. Moderate AI
When able to take oral-->on metoprolol, torsemide as outpatient
-Resumed metoprolol
-MOLD HOLDER Torsemide resumed
# Diabetes-was on metformin thousand twice daily
Restarted
Hemoglobin A1c 7.6
Also added Prandin before meals
Accu-Cheks and sliding scale coverage
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
Follow creatinine

# Hypertension-On metoprolol
# Hyperlipidemia-Atorvastatin
# Patient is on prednisone for Bullous Pemphigoid
10 mg alternating with 5 mg every other day
resumed prednisone 20 (recommended dose given initiation methimazole)
# Pulmonary hypertension
# Valvular heart disease-moderate TR, moderate AI
# History of small bowel perforation with ex small bowel resection with primary anastomosis and abdominal washout February 2023
# Pulmonary hypertension
# Valvular heart disease-moderate TR, moderate AI
# Left upper extremity PICC line associated DVT in the past
# Ambulatory dysfunction-uses a walker
Spinal stenosis
# Migraines
# Hypoalbuminemia
# DVT prophylaxis-Lovenox now
# Full code
D/W at bed side
D/W Gen Surgery
D/W Nursing
Anticipated Discharge: Within 24 hours
Subjective/Interval History
-
Date of Service: September 07, 2023
Objective Data
-
Labs:
Laboratory Results
09/07/23
07:27
WBC 7.6
Hgb 9.7 L
Hct 27.5 L
Plt Count 173
Sodium 131 L
Potassium 3.5
Chloride 107
Carbon Dioxide 22
BUN 13
Creatinine 0.7
Glucose 170 H
Calcium 8.0 L
Total Bilirubin 0.3
AST 19
ALT 38 H
Alkaline Phosphatase 88
Vital Signs:
Vital Signs
Temp Pulse Resp BP Pulse Ox
98.0 F 54 16 142/59 97
09/07/23 12:01 09/07/23 12:01 09/07/23 12:01 09/07/23 12:01 09/07/23 12:01
I&O
09/06/23 09/07/23 09/08/23
06:59 06:59 06:59
Intake Total 364.75 / 364.75 2199
Output Total 750 / 750
Balance -385.25 / -385.25 2199
[2023-09-07] MEDS: KCL 20 MEQ PO (12:29)
--- NOTE | 2023-09-07 13:35 | CM ---
manager health met with patient and spouse and they are now agreeable to skilled rehab options were reviewed and they have selected [facility]. referral sent to [facility].
Plan; Waiting on a determination from admissions at [facility].
[2023-09-07 14:42] LABS: Osmolality Serum 283 mOsm/kg (275-300)
[2023-09-07 15:55] VITALS: BP 127/53
[2023-09-07] MEDS: LIPITOR 10 MG PO (16:55)
[2023-09-07 17:04] LABS: Glucose - Point of Care 148 mg/dl (70-99)
[2023-09-07] MEDS: NOVOLOG FLEXPEN-LOW RESISTANCE SC (17:12)
[2023-09-07 19:00] VITALS: BP 126/54
[2023-09-07 21:49] LABS: Osmolality Urine 439 mOsm/kg (300-900)
[2023-09-07 21:55] LABS: Glucose - Point of Care 87 mg/dl (70-99)
[2023-09-07 22:04] LABS: Urine Sodium 19 mmol/L (30-90)
[2023-09-07 22:45] VITALS: BP 126/52
[2023-09-07] MEDS: TOPROL XL 50 MG PO (22:50)
[2023-09-08] VITALS (7 sets, daily range): BP systolic 121–151; BP diastolic 50–69; PULSE 64; O2SAT 94; BMI 23.2
--- NOTE | 2023-09-08 03:37 | DOWNTIME ---
There was a [facility] [employer] Trapper Downtime on 09/08/2023 from 0100 to 09/08/2023 at 0322. Downtime documentation of patient's care, including medication administrations, has been reconciled in the electronic record per guidelines. Refer to the
patient's paper chart under the miscellaneous tab to see printed paper medication records and downtime forms.
[2023-09-08] MEDS: ZOSYN 50 IV ×2 (05:34→13:15)
[2023-09-08 07:14] LABS: Glucose - Point of Care 66 mg/dl (70-99)
[2023-09-08 07:35] LABS: Glucose - Point of Care 60 mg/dl (70-99)
[2023-09-08 07:55] LABS: Glucose - Point of Care 53 mg/dl (70-99)
[2023-09-08 07:57] LABS: Hematocrit 28.2 % (37.0-47.0); Hemoglobin 10.4 g/dL (12.0-16.0); Mean Corp Hgb Conc. 36.9 g/dL (33.0-37.0); Mean Corpuscular Hgb 30.6 pg (27.0-31.0); Mean Corpuscular Volume 82.9 fL (81.0-99.0); Mean Platelet Volume 10.6 fL (7.4-10.4); Platelet Count 214 10^3/uL (130-400); Red Cell Dist. Width 13.9 % (11.5-14.5); White Blood Cell Count 9.5 10^3/uL (4.8-10.8)
[2023-09-08 07:58] LABS: Glucose - Point of Care 48 mg/dl (70-99)
[2023-09-08] MEDS: DEXTROSE 50% SYRINGE 12.5 GRAMS IV ×2 (08:13→15:51)
--- NOTE | 2023-09-08 09:00 | WOUNDNOTE ---
[facility] RN note: Patient admitted 08/27/23 [facility] acute GI bleed, s/p exploratory lap and cecotomy with post op ileus. Patient is . Plan is SNF when discharged.
See H&P for complete history.
PMH: a fib (Eliquis), CHF, exploratory lap, CM, pulmonary HTN, DM, roller walker, MARIA C, b/l knee replacement, chronic lymphedema Le's (L>R), RLE weakness, valvular disease, LUE DVT r/t PICC in past, spinal stenosis.
Wound Location and type/assessment: Patient now has a few small stage 2 sacral pressure injuries and L medial antecubital space linear dermal skin tear suspect from adhesive from a previously removed IV site? Moderate-large serous drainage. +L
medial elbow edema and area of mild erythema just proximal to skin tear. +Anasarca. Patient has scattered small scabbed abrasions suspect from patient scratching skin on R lateral knee, L lateral ankle, L ear. Skin on heels intact.
Appetite: fair.
Pressure redistribution devices in place: [employer] Accumax. Patient has folded air overlay on her window sill. Patient unsure why it was removed. Discussed with MAIRA Calles who will plans to apply a mattress air overlay. Patient assists with
turning. Patient has an air chair cushion.
Plan: L arm dressing changed. Silicone border foam changed on sacrum. [place] texted IV nurse Constantine HALEY skin tear picture in case IV nurse has anything else to add for treatment.
Will updated and confirm orders with hospitalist and discussed with MAIRA Calles.
Updated care plan and will follow as needed.
Note to case management of equipment requested for discharge: Air mattress at SNF.
Recommend follow up at wound care center upon discharge if needed.
--- NOTE | 2023-09-08 09:00 | WOUNDNOTE ---
[facility] RN note: Patient admitted 08/27/23 [facility] acute GI bleed, s/p exploratory lap and cecotomy with post op ileus. Patient is . Plan is SNF when discharged.
See H&P for complete history.
PMH: a fib (Eliquis), CHF, exploratory lap, CM, pulmonary HTN, DM, roller walker, MARIA C, b/l knee replacement, chronic lymphedema Le's (L>R), RLE weakness, valvular disease, LUE DVT r/t PICC in past, spinal stenosis.
Wound Location and type/assessment: Patient now has a few small stage 2 sacral pressure injuries and L medial antecubital space linear dermal skin tear. Moderate-large serous drainage. +L medial elbow edema and area of mild erythema just proximal
to skin tear. +Anasarca. Patient has scattered small scabbed abrasions suspect from patient scratching skin on R lateral knee, L lateral ankle, L ear. Skin on heels intact.
Appetite: fair.
Pressure redistribution devices in place: [employer] Accumax. Patient has folded air overlay on her window sill. Patient unsure why it was removed. Discussed with MAIRA Calles who will plans to apply a mattress air overlay. Patient assists with
turning. Patient has an air chair cushion.
Plan: L arm dressing changed. Silicone border foam changed on sacrum. [place] texted IV nurse Constantine HALEY skin tear picture in case IV nurse has anything else to add for treatment. Constantine confirmed it was not a previous IV site.
Will updated and confirm orders with hospitalist and discussed with MAIRA Calles.
Updated care plan and will follow as needed.
Note to case management of equipment requested for discharge: Air mattress at SNF.
Recommend follow up at wound care center upon discharge if needed.
[2023-09-08 09:09] LABS: Glucose - Point of Care 93 mg/dl (70-99)
--- NOTE | 2023-09-08 09:30 | WOUNDNOTE ---
L THIGH (POSTERIOR UPPER)
--- NOTE | 2023-09-08 09:30 | WOUNDNOTE ---
L ANTECUBITAL AREA (MEDIAL)
--- NOTE | 2023-09-08 09:30 | WOUNDNOTE ---
L ARM (MEDIAL, NEAR ELBOW)
--- NOTE | 2023-09-08 09:30 | WOUNDNOTE ---
L 5TH TOE (PLANTAR)
[2023-09-08] MEDS: GLUCOPHAGE PO ×2 (10:17→17:39)
[2023-09-08] MEDS: NOVOLOG FLEXPEN-LOW RESISTANCE SC ×3 (10:17→17:32)
[2023-09-08] MEDS: PRANDIN PO ×2 (10:18→13:13)
[2023-09-08] MEDS: LOVENOX 55 MG SC (10:19)
[2023-09-08] MEDS: NSS (PRESERVATIVE FREE) IV (10:22)
[2023-09-08] MEDS: PROTONIX IV IV (10:22)
[2023-09-08] MEDS: DELTASONE 20 MG PO (10:23)
[2023-09-08] MEDS: KCL 20 MEQ PO (10:24)
[2023-09-08] MEDS: PACERONE 200 MG PO (10:24)
[2023-09-08] MEDS: DEMADEX 20 MG PO (10:24)
--- NOTE | 2023-09-08 10:45 | WOUNDNOTE ---
[facility] RN note: Patient seen around 0900. Patient admitted 08/27/23 [facility] acute GI bleed, s/p exploratory lap and cecotomy with post op ileus. Patient is . Plan is SNF when discharged.
See H&P for complete history.
PMH: a fib (Eliquis), CHF, exploratory lap, CM, pulmonary HTN, DM, roller walker, MARIA C, b/l knee replacement, chronic lymphedema Le's (L>R), RLE weakness, valvular disease, LUE DVT r/t PICC in past, spinal stenosis.
Wound Location and type/assessment: Patient now has a few small stage 2 sacral pressure injuries and L medial antecubital space linear dermal skin tear. Moderate-large serous drainage. +L medial elbow edema and area of mild erythema just proximal
to skin tear. +Anasarca. Patient has a linear intact serous blister L upper posterior thigh. Patient has scattered small scabbed areas on R lateral knee, L lateral ankle, L ear perhaps r/t general edema with dry skin. Patient on prednisone. Skin on
heels intact.
Appetite: fair.
Pressure redistribution devices in place: [employer] Accumax. Patient has an un-inflated folded air overlay on her window sill. Patient unsure why it was removed. Discussed with MAIRA Calles who will plans to apply an air mattress overlay. Patient
assists with turning. Patient has an air chair cushion.
Plan: L arm dressing changed. Silicone border foam changed on sacrum and L posterior upper thigh. [place] texted IV nurse Constantine HALEY skin tear picture in case IV nurse has anything else to add for treatment. Constantine confirmed it was not a previous IV
site.
Updated and confirm orders with Dr. Encinas and discussed with MAIRA Calles.
Updated care plan and will follow as needed.
Note to case management of equipment requested for discharge: Air mattress at SNF.
Recommend follow up at wound care center upon discharge if needed.
--- NOTE | 2023-09-08 11:41 | CM ---
Chart reviewed and plan is for skilled placement, referral was sent to [facility], patient is a [employer] patient and will need Auth for skilled placement, sample case porter will need updated PT/OT notes in order to obtain Auth.
Plan; Skilled placement when stable, referral sent to [facility].
[2023-09-08 11:53] LABS: Glucose - Point of Care 91 mg/dl (70-99)
[2023-09-08] MEDS: TAPAZOLE 20 MG PO (13:15)
--- NOTE | 2023-09-08 14:40 | W.PN.HOSP.TC ---
Today's Communication/Plan
-
IV lasix for Anasarca
MRI L Spine
Stop Zosyn
Labs
Assessment / Plan
Assessment / Plan
CVS Si S2 , Sm RHB
Chest Clear
Abd- Lap wound
LE no edema
Mild RLE weakness, she has good sensations
Distal strength better,
Proximal weakness Both sides.
Anasarca
A/P:
#Small bowel obstruction/gallstone ileus status post exploratory laparotomy, ASHELY, cecotomy and removal of stone for gallstone ileus on 08/31:
-s/p NGT, removed 09/03 AM and advanced diet - patient tolerating
-Stop Zosyn per D/W
#Anasarca- IV Lasix
#Right lower extremity weakness
-CT of the head unremarkable
-MRI-no acute changes. Moderate volume loss and moderate leukoaraiosis consistent with chronic small vessel disease. Moderate degenerative disc joint disease and cervical spine. Moderate mastoiditis bilaterally.
-PT OT
-MRI of C spine as OP
-Check MR L spine
# Mild hyponatremia
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
Torsemide and follow
# Hypokalemia
Replace PRN
#Hypomagnesemia- Replaced
#Anemia
-Acute post op BL and chronic anemia
-no e/o bleeding
-repeat Hg now, Hg stable
# Elevated LFTs
Improving
# Slightly elevated lipase not related to pancreatitis
# Abnormal thyroid function test-Dr Encinas has reached out to .
Started methimazole 20 mg daily and prednisone 20 mg daily for 2 weeks. Patient needs to be seen by endocrine within [address] Encinas advised patient and that they need to inform the office that cabinetmaker helper wanted him to be seen within 2 weeks to get an appointment.
Methimazole and prednisone 20 initiated on 09/03 when patient taking PO
Continue till September 17 and then need to see Endocrine for further Recommendations
# Paroxysmal atrial fibrillation on Eliquis and metoprolol as outpatient
-CRIMINAL INVESTIGATOR Amiodarone, Metoprolol resumed
-Eliquis restarted after talking with
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
Echo 08/04/2023-moderately reduced ejection fraction 40%. Global hypokinesis. Aortic sclerosis without stenosis. Moderate AI
When able to take oral-->on metoprolol, torsemide as outpatient
-Resumed metoprolol
-CRIMINAL INVESTIGATOR Torsemide resumed
-Hold and do IV lasix
# Diabetes-was on metformin thousand twice daily
Restarted
Hemoglobin A1c 7.6
Also added Prandin before meals
Accu-Cheks and sliding scale coverage
Sugars were low this am for unclear reason.
Watch closely
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
Follow creatinine
#Stage 2 PI Sacrum
Left medial antecub skin tear

# Hypertension-On metoprolol
# Hyperlipidemia-Atorvastatin
# Patient is on prednisone for Bullous Pemphigoid
10 mg alternating with 5 mg every other day
resumed prednisone 20 (recommended dose given initiation methimazole)
# Pulmonary hypertension
# Valvular heart disease-moderate TR, moderate AI
# History of small bowel perforation with ex small bowel resection with primary anastomosis and abdominal washout February 2023
# Pulmonary hypertension
# Valvular heart disease-moderate TR, moderate AI
# Left upper extremity PICC line associated DVT in the past
# Ambulatory dysfunction-uses a walker
Spinal stenosis
# Migraines
# Hypoalbuminemia
# DVT prophylaxis-Lovenox now
# Full code
D/W
D/W
D/W Nursing
D?W case management
Anticipated Discharge: 24 - 48 hours
Subjective/Interval History
-
Date of Service: September 08, 2023
Objective Data
-
Labs:
Laboratory Results
09/08/23 09/08/23
06:43 14:28
WBC 9.5
Hgb 10.4 L
Hct 28.2 L
Plt Count 214 D
Sodium Pending
Potassium Pending
Chloride Pending
Carbon Dioxide Pending
BUN Pending
Creatinine Pending
Glucose Pending
Calcium Pending
Vital Signs:
Vital Signs
Temp Pulse Resp BP Pulse Ox
99.0 F 63 16 140/59 97
09/08/23 11:30 09/08/23 11:30 09/08/23 11:30 09/08/23 11:30 09/08/23 11:30
I&O
09/07/23 09/08/23 09/09/23
06:59 06:59 06:59
Intake Total 2200 / 2200 1750 / 1750
Balance 2200 / 2200 1750 / 1750
[2023-09-08 15:04] LABS: Blood Urea Nitrogen 12 mg/dl (7-17); Calcium 8.2 mg/dl (8.4-10.2); Carbon Dioxide 22 mmol/L (22-30); Chloride 101 mmol/L (98-107); Estimated Creatinine Clearance 45 ml/min; Glucose 51 mg/dl (70-99); Potassium 4.3 mmol/L (3.5-5.1); Sodium 129 mmol/L (135-145); eGFR > 60.00
[2023-09-08 15:22] LABS: Glucose - Point of Care 60 mg/dl (70-99)
[2023-09-08 15:46] LABS: Glucose - Point of Care 57 mg/dl (70-99)
--- NOTE | 2023-09-08 16:16 | WOUNDNOTE ---
[facility] RN note: [place] texted Client Relationship Consultant Nadya Vega re: recommend air mattress at SNF; she has small stage 2 sacral pressure injuries.
--- NOTE | 2023-09-08 16:20 | PTCARENOTE ---
1500 Lab called blood sugar on BMP level 51, checked pt. Pt awake and verbalizing. 1520 Recheck accucheck blood sugar result 60, 4oz of juice given to pt.
1545 Recheck accucheck blood sugar 57, pt continue awake and verbalizing, Dr. Encinas notified and ordered to give dextrose 1/2 amp IV.
16:18 Recheck accucheck blood sugar result 145, continue to monitor pt closely.
[2023-09-08 16:22] LABS: Glucose - Point of Care 145 mg/dl (70-99)
[2023-09-08] MEDS: LASIX 40 MG IV (17:53)
[2023-09-08] MEDS: LIPITOR 10 MG PO (17:53)
[2023-09-08 18:59] LABS: Glucose - Point of Care 108 mg/dl (70-99)
[2023-09-08 20:41] LABS: Glucose - Point of Care 116 mg/dl (70-99)
[2023-09-08] MEDS: PROTONIX 40 MG PO (22:41)
[2023-09-08] MEDS: COLACE 100 MG PO (22:42)
[2023-09-08] MEDS: ELIQUIS 2.5 MG PO (22:42)
[2023-09-08] MEDS: TOPROL XL 50 MG PO (22:42)
[2023-09-09] VITALS (7 sets, daily range): BP systolic 116–143; BP diastolic 49–60; PULSE 73; BMI 22.0
[2023-09-09 04:19] LABS: Glucose - Point of Care 135 mg/dl (70-99)
[2023-09-09 07:42] LABS: Hematocrit 29.6 % (37.0-47.0); Hemoglobin 10.7 g/dL (12.0-16.0); Mean Corp Hgb Conc. 36.1 g/dL (33.0-37.0); Mean Corpuscular Hgb 29.2 pg (27.0-31.0); Mean Corpuscular Volume 80.9 fL (81.0-99.0); Mean Platelet Volume 10.1 fL (7.4-10.4); Platelet Count 211 10^3/uL (130-400); Red Blood Cell Count 3.66 10^6/uL (4.20-5.40); Red Cell Dist. Width 13.7 % (11.5-14.5)
[2023-09-09 08:02] LABS: Glucose - Point of Care 79 mg/dl (70-99)
[2023-09-09 08:32] LABS: Blood Urea Nitrogen 12 mg/dl (7-17); Calcium 8.4 mg/dl (8.4-10.2); Carbon Dioxide 25 mmol/L (22-30); Chloride 101 mmol/L (98-107); Estimated Creatinine Clearance 45 ml/min; Glucose 74 mg/dl (70-99); Magnesium 1.8 mg/dl (1.6-2.3); Potassium 3.7 mmol/L (3.5-5.1); Sodium 129 mmol/L (135-145); eGFR > 60.00
[2023-09-09] MEDS: NOVOLOG FLEXPEN-LOW RESISTANCE SC ×2 (09:00→13:00)
[2023-09-09] MEDS: GLUCOPHAGE PO (11:06)
[2023-09-09] MEDS: COLACE PO (11:11)
[2023-09-09] MEDS: LASIX 40 MG IV ×2 (11:12→16:51)
[2023-09-09 11:13] LABS: Glucose - Point of Care 101 mg/dl (70-99)
[2023-09-09] MEDS: TAPAZOLE 20 MG PO (11:13)
[2023-09-09] MEDS: PROTONIX 40 MG PO ×2 (11:13→21:04)
[2023-09-09] MEDS: DELTASONE 20 MG PO (11:13)
[2023-09-09] MEDS: ELIQUIS 2.5 MG PO ×2 (11:13→21:03)
[2023-09-09] MEDS: PACERONE 200 MG PO (11:13)
[2023-09-09] MEDS: KCL 20 MEQ PO (11:13)
--- NOTE | 2023-09-09 12:43 | CM ---
Addendum entered by Nadya Nazario 09/09/23 15:57:
Per admissions at [facility] they may not have a bed for patient pillowcase folder will need to call, case manger provided patient and spouse with the list of Medicare.gov facilities in area and ratings, per patient and spouse they are not agreeable to
[facility], [facility], [place] is too far, [facility], or [facility].
Original Note:
Chart reviewed and plan now is for skilled placement, patient and spouse agreeable to [facility], patient was there in the past, referral sent and will need to check on bed availability at [facility] when patient is stable, per wound care nurse
patient will need air mattress at facility.
Plan; Skilled placement at [facility].
--- NOTE | 2023-09-09 14:45 | W.PN.HOSP.TC ---
Today's Communication/Plan
-
Lasix
Relax calorie restriction
Assessment / Plan
Assessment / Plan
CVS S1 S2 , Sm RHB
Chest Clear
Abd- Lap wound
LE no edema
Mild RLE weakness, she has good sensations
Distal strength better,
Proximal weakness Both sides.
Anasarca better
A/P:
#Small bowel obstruction/gallstone ileus status post exploratory laparotomy, ASHELY, cecotomy and removal of stone for gallstone ileus on 08/31:
-S/P NGT, removed 09/03 AM and advanced diet - patient tolerating
-Stopped Zosyn per D/W
#Anasarca- IV Lasix to be continued
#Right lower extremity weakness
-CT of the head unremarkable
-MRI-no acute changes. Moderate volume loss and moderate leukoaraiosis consistent with chronic small vessel disease. Moderate degenerative disc joint disease and cervical spine. Moderate mastoiditis bilaterally.
-PT OT
-MRI of C spine as OP
-Check MR L spine noted- DJD
-Likely cause of mild weakness. She has moderate narrowing of the L3-4, L4-5 and L2-3.
# Mild hyponatremia
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
Lasix
# Hypokalemia
Replace PRN
#Hypomagnesemia- Replaced
#Anemia
-Acute post op BL and chronic anemia
-no e/o bleeding
-repeat Hg now, Hg stable
# Elevated LFTs
Improving
# Slightly elevated lipase not related to pancreatitis
# Abnormal thyroid function test-Dr Encinas reached out to .
Started methimazole 20 mg daily and prednisone 20 mg daily for 2 weeks. Patient needs to be seen by endocrine within [address] Encinas advised patient and that they need to inform the office that ride assembly supervisor wanted him to be seen within 2 weeks to get an appointment.
Methimazole and prednisone 20 initiated on 09/03 when patient taking PO
Continue till September 17 and then need to see Endocrine for further Recommendations
Ill check with Endocrine again as pt is supposed to go to rehab
# Paroxysmal atrial fibrillation on Eliquis and metoprolol as outpatient
-SUPERVISOR OPENING AND PICKING Amiodarone, Metoprolol resumed
-Eliquis restarted
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
Echo 08/04/2023-moderately reduced ejection fraction 40%. Global hypokinesis. Aortic sclerosis without stenosis. Moderate AI
When able to take oral-->on metoprolol, torsemide as outpatient
-Resumed metoprolol
-SUPERVISOR OPENING AND PICKING Torsemide resumed
-Hold torsemide and do IV Lasix
# Diabetes-was on metformin thousand twice daily
Restarted then held
Hemoglobin A1c 7.6
Also added Prandin before meals, then held
Accu-Cheks and sliding scale coverage
Relax diet calorie restriction.
I did advise patient to choose wisely so her sugars normally go really high.
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
Better
#Stage 2 PI Sacrum
Left medial antecub skin tear

# Hypertension-On metoprolol
# Hyperlipidemia-Atorvastatin
# Patient is on prednisone for Bullous Pemphigoid
10 mg alternating with 5 mg every other day
resumed prednisone 20 (recommended dose given initiation methimazole)
# Pulmonary hypertension
# Valvular heart disease-moderate TR, moderate AI
# History of small bowel perforation with ex small bowel resection with primary anastomosis and abdominal washout February 2023
# Pulmonary hypertension
# Valvular heart disease-moderate TR, moderate AI
# Left upper extremity PICC line associated DVT in the past
# Ambulatory dysfunction-uses a walker
Spinal stenosis
# Migraines
# Hypoalbuminemia
# DVT prophylaxis-Lovenox now
# Full code
D/W
D/W Nursing
D/W case management
Anticipated Discharge: Within 24 hours
Subjective/Interval History
-
Date of Service: September 09, 2023
Objective Data
-
Labs:
Laboratory Results
09/09/23
06:45
WBC 8.0
Hgb 10.7 L
Hct 29.6 L
Plt Count 211
Sodium 129 L
Potassium 3.7
Chloride 101
Carbon Dioxide 25
BUN 12
Creatinine 0.7
Glucose 74
Calcium 8.4
Vital Signs:
Vital Signs
Temp Pulse Resp BP Pulse Ox
97.5 F 72 24 125/53 99
09/09/23 11:59 09/09/23 11:59 09/09/23 11:59 09/09/23 11:59 09/09/23 11:59
I&O
09/08/23 09/09/23 09/10/23
06:59 06:59 06:59
Intake Total 1750 / 1750 2650 / 2650
Output Total 500 / 500 250 / 250
Balance 1750 / 1750 2150 / 2150 -250 / -250
[2023-09-09 16:43] LABS: Glucose - Point of Care 190 mg/dl (70-99)
[2023-09-09] MEDS: NOVOLOG FLEXPEN-LOW RESISTANCE 1 UNITS SC (16:49)
[2023-09-09] MEDS: LIPITOR 10 MG PO (16:51)
[2023-09-09] MEDS: FLORASTOR 250 MG PO ×2 (16:51→21:04)
[2023-09-09] MEDS: MYCOSTATIN ORAL SUSPENSION 5 ML PO ×2 (16:51→22:53)
--- NOTE | 2023-09-09 20:45 | PTCARENOTE ---
1600 Pt did not meet criteria to continue telemetry, Dr. Encinas discussed with me to continue telemetry to monitor heart arrhythmia,continue to monitor pt closely.
[2023-09-09 21:44] LABS: Glucose - Point of Care 356 mg/dl (70-99)
[2023-09-09] MEDS: TOPROL XL 50 MG PO (22:53)
[2023-09-10] VITALS (7 sets, daily range): BP systolic 129–139; BP diastolic 46–59; PULSE 56; O2SAT 98; BMI 22.0
[2023-09-10 08:25] LABS: Blood Urea Nitrogen 15 mg/dl (7-17); Calcium 8.2 mg/dl (8.4-10.2); Carbon Dioxide 25 mmol/L (22-30); Chloride 97 mmol/L (98-107); Estimated Creatinine Clearance 45 ml/min; Glucose 272 mg/dl (70-99); Potassium 4.2 mmol/L (3.5-5.1); Sodium 126 mmol/L (135-145); eGFR > 60.00
[2023-09-10 08:36] LABS: Glucose - Point of Care 313 mg/dl (70-99)
--- NOTE | 2023-09-10 08:50 | CM ---
Left VM for [facility] re bed availability.
Referral placed for [facility].
Plan: Skilled rehab when bed available and [employer] auth received.
[2023-09-10] MEDS: TAPAZOLE 20 MG PO (09:07)
[2023-09-10] MEDS: FLORASTOR 250 MG PO ×2 (09:07→21:14)
[2023-09-10] MEDS: KCL 20 MEQ PO (09:07)
[2023-09-10] MEDS: ELIQUIS 2.5 MG PO ×2 (09:08→21:14)
[2023-09-10] MEDS: DELTASONE 20 MG PO (09:08)
[2023-09-10] MEDS: MYCOSTATIN ORAL SUSPENSION 5 ML PO ×4 (09:08→21:14)
[2023-09-10] MEDS: PACERONE 200 MG PO (09:08)
[2023-09-10] MEDS: LASIX 40 MG IV (09:08)
[2023-09-10] MEDS: PROTONIX 40 MG PO ×2 (09:08→21:14)
[2023-09-10] MEDS: NOVOLOG FLEXPEN-LOW RESISTANCE 4 UNITS SC ×2 (09:09→17:06)
[2023-09-10 11:41] LABS: Glucose - Point of Care 272 mg/dl (70-99)
[2023-09-10] MEDS: NOVOLOG FLEXPEN-LOW RESISTANCE 3 UNITS SC (13:06)
--- NOTE | 2023-09-10 14:49 | CM ---
Addendum entered by Josi Mandujano 09/10/23 16:31:
TC back from [employer]
Approved 7 days skilled level 1
Start date 09/11/23, LCD/NRD 09/17/23
Authorization # [id number]
Updates by fax to [phone]
[facility] authorization # [id number]
Addendum entered by Josi Mandujano 09/10/23 15:49:
Left VM for [employer] foundation drill operator, await TCB to initiate authorization.
Addendum entered by Josi Mandujano 09/10/23 15:40:
TC from [facility] from [facility]
Can admit tomorrow AFTER 3 pm
Needs [employer] authorization
[facility] NPI# [id number]
MD: Gigi Martinez NPI# [id number]
Call or text [facility] with authorization number, NRD and transport time.
Report# [phone] 4th floor

Patient needs COVID Test
Original Note:
Per [facility]/ [facility], she is able to accept patient after 3 pm Wednesday.
[facility] will need a COVID test.
Tatianna will call back later today to let CM know what else she will need.
Patient and spouse updated.
IMM completed.
Patient will need [employer] authorization.
TC to therapy department requesting updated PT/OT notes either this afternoon or tomorrow am so authorization can be obtained.
Plan: [facility] tomorrow.
--- NOTE | 2023-09-10 16:06 | W.PN.HOSP.TC ---
Today's Communication/Plan
-
ADA diet
Metformin
Samsca
Hold evening lasix
Assessment / Plan
Assessment / Plan
CVS S1 S2 , Sm RHB
Chest Clear
Abd- Lap wound
LE no edema
Anasarca better
Purplish rash on knees for days- says she sees Derm and Biopsy taken from that
A/P:
#Small bowel obstruction/gallstone ileus status post exploratory laparotomy, ASHELY, cecotomy and removal of stone for gallstone ileus on 08/31:
-S/P NGT, removed 09/03 AM and advanced diet - patient tolerating
-Stopped Zosyn per D/W
#Anasarca- IV Lasix held
#Right lower extremity weakness
-CT of the head unremarkable
-MRI-no acute changes. Moderate volume loss and moderate leukoaraiosis consistent with chronic small vessel disease. Moderate degenerative disc joint disease and cervical spine. Moderate mastoiditis bilaterally.
-PT OT
-MRI of C spine as OP
-Check MR L spine noted- DJD
-Likely cause of mild weakness. She has moderate narrowing of the L3-4, L4-5 and L2-3.
# Mild hyponatremia
SIADH
Samsca
# Hypokalemia
Replace PRN
#Hypomagnesemia- Replaced
#Anemia
-Acute post op BL and chronic anemia
-no e/o bleeding
-repeat Hg now, Hg stable
# Elevated LFTs
Improving
# Slightly elevated lipase not related to pancreatitis
# Abnormal thyroid function test-Dr Encinas reached out to .
Started methimazole 20 mg daily and prednisone 20 mg daily for 2 weeks. Patient needs to be seen by endocrine within [address] Encinas advised patient and that they need to inform the office that sponge maker wanted him to be seen within 2 weeks to get an appointment.
Methimazole and prednisone 20 initiated on 09/03 when patient taking PO
Continue till September 17 and then change to Methimazole 10 mg per D/W on 09/09/23.
Then she needs to be seen as soon as she is out of rehab\\
I wrote this down for
# Paroxysmal atrial fibrillation on Eliquis and metoprolol as outpatient
-RESTAURANT LEAD Amiodarone, Metoprolol resumed
-Eliquis restarted
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
Echo 08/04/2023-moderately reduced ejection fraction 40%. Global hypokinesis. Aortic sclerosis without stenosis. Moderate AI
When able to take oral-->on metoprolol, torsemide as outpatient
-Resumed metoprolol
-on Diuresis
# Diabetes-was on metformin thousand twice daily
Restarted then held
Hemoglobin A1c 7.6
Also added Prandin before meals, then held as sugars were low
with regular diet her sugars are high and ADA diet low
Will change back to ADA again
Restart Metformin
Hold Prandin.
# VANESSA
Unclear if she has CKD
Likely not
Better
#Stage 2 PI Sacrum
Left medial antecub skin tear

# Hypertension-On metoprolol
# Hyperlipidemia-Atorvastatin
# Patient is on prednisone for Bullous Pemphigoid
10 mg alternating with 5 mg every other day
resumed prednisone 20 (recommended dose given initiation methimazole)
# Pulmonary hypertension
# Valvular heart disease-moderate TR, moderate AI
# History of small bowel perforation with ex small bowel resection with primary anastomosis and abdominal washout February 2023
# Pulmonary hypertension
# Valvular heart disease-moderate TR, moderate AI
# Left upper extremity PICC line associated DVT in the past
# Ambulatory dysfunction-uses a walker
Spinal stenosis
# Migraines
# Hypoalbuminemia
# DVT prophylaxis-Lovenox now
# Full code
D/W at bed side
D/W Nursing
D/W case management
Anticipated Discharge: Within 24 hours
Subjective/Interval History
-
Date of Service: September 10, 2023
Objective Data
-
Labs:
Laboratory Results
09/10/23
06:38
Sodium 126 L
Potassium 4.2
Chloride 97 L
Carbon Dioxide 25
BUN 15
Creatinine 0.7
Glucose 272 H
Calcium 8.2 L
Vital Signs:
Vital Signs
Temp Pulse Resp BP Pulse Ox
97.7 F 58 18 139/53 96
09/10/23 15:00 09/10/23 15:00 09/10/23 15:00 09/10/23 15:00 09/10/23 15:00
I&O
09/09/23 09/10/23 09/11/23
06:59 06:59 06:59
Intake Total 2650 / 2650 720 / 720 960 / 960
Output Total 500 / 500 250 / 250
Balance 2150 / 2150 470 / 470 960 / 960
[2023-09-10 16:45] LABS: Glucose - Point of Care 301 mg/dl (70-99)
[2023-09-10] MEDS: GLUCOPHAGE 1000 MG PO (17:05)
[2023-09-10] MEDS: SAMSCA 15 MG PO (17:05)
[2023-09-10] MEDS: LASIX IV (17:05)
[2023-09-10] MEDS: LIPITOR 10 MG PO (17:06)
[2023-09-10 17:34] LABS: COVID-19 Antigen Negative (Negative)
[2023-09-10] MEDS: TOPROL XL 50 MG PO (21:14)
[2023-09-10 21:26] LABS: Glucose - Point of Care 240 mg/dl (70-99)
[2023-09-11 03:05] VITALS: BP 124/45
[2023-09-11 06:00] VITALS: BMI 21.2
[2023-09-11 07:00] VITALS: BP 133/48
[2023-09-11 07:58] LABS: Glucose - Point of Care 149 mg/dl (70-99)
[2023-09-11] MEDS: FLORASTOR 250 MG PO (08:36)
[2023-09-11] MEDS: PACERONE 200 MG PO (08:36)
[2023-09-11] MEDS: DELTASONE 20 MG PO (08:36)
[2023-09-11] MEDS: GLUCOPHAGE 1000 MG PO ×2 (08:36→17:17)
[2023-09-11] MEDS: TAPAZOLE 20 MG PO (08:36)
[2023-09-11] MEDS: ELIQUIS 2.5 MG PO (08:36)
[2023-09-11] MEDS: MYCOSTATIN ORAL SUSPENSION 5 ML PO ×3 (08:37→17:17)
[2023-09-11] MEDS: KCL 20 MEQ PO (08:38)
[2023-09-11] MEDS: NOVOLOG FLEXPEN-LOW RESISTANCE SC (08:38)
[2023-09-11] MEDS: PROTONIX 40 MG PO (08:39)
[2023-09-11 08:56] LABS: Blood Urea Nitrogen 15 mg/dl (7-17); Calcium 8.9 mg/dl (8.4-10.2); Carbon Dioxide 29 mmol/L (22-30); Chloride 100 mmol/L (98-107); Estimated Creatinine Clearance 45 ml/min; Glucose 114 mg/dl (70-99); Potassium 4.1 mmol/L (3.5-5.1); Sodium 131 mmol/L (135-145); eGFR > 60.00
[2023-09-11 11:00] VITALS: BP 134/52
[2023-09-11] MEDS: LASIX 40 MG IV (11:48)
[2023-09-11] MEDS: MILK OF MAGNESIA 30 ML PO (11:49)
[2023-09-11 12:13] LABS: Glucose - Point of Care 159 mg/dl (70-99)
--- NOTE | 2023-09-11 12:25 | W.PN.HOSP.TC ---
Today's Communication/Plan
-
Discharge
Please give a copy of the discharge instructions fro the also
Assessment / Plan
Assessment / Plan
CVS S1 S2 , Sm RHB
Chest Clear
Abd- Lap wound, stable
LE no edema
Anasarca much better
A/P:
#Small bowel obstruction/gallstone ileus status post exploratory laparotomy, ASHELY, cecotomy and removal of stone for gallstone ileus on 08/31:
-S/P NGT, removed 09/03 AM and advanced diet - patient tolerating
-Change to regular diet
-Stopped Zosyn per D/W
#Anasarca- IV Lasix.
change top Torsemide
#Right lower extremity weakness
-CT of the head unremarkable
-MRI-no acute changes. Moderate volume loss and moderate leukoaraiosis consistent with chronic small vessel disease. Moderate degenerative disc joint disease and cervical spine. Moderate mastoiditis bilaterally.
-PT OT
-MRI of C spine as OP
-Check MR L spine noted- DJD
-Likely cause of mild weakness. She has moderate narrowing of the L3-4, L4-5 and L2-3.
# Mild hyponatremia
SIADH
Samsca
# Hypokalemia
Replace PRN
#Hypomagnesemia- Replaced
#Anemia
-Acute post op BL and chronic anemia
-no e/o bleeding
-repeat Hg now, Hg stable
# Elevated LFTs
Improving
# Slightly elevated lipase not related to pancreatitis
# Abnormal thyroid function test-Dr Encinas reached out to .
Started methimazole 20 mg daily and prednisone 20 mg daily for 2 weeks. Patient needs to be seen by endocrine within [address] Encinas advised patient and that they need to inform the office that grades 7 and 8 visiting teacher wanted him to be seen within 2 weeks to get an appointment.
Methimazole and prednisone 20 initiated on 09/03 when patient taking PO
Continue till September 17 and then change to Methimazole 10 mg per D/W on 09/09/23.
Then she needs to be seen as soon as she is out of rehab
I wrote this down for
# Paroxysmal atrial fibrillation on Eliquis and metoprolol as outpatient
-INVENTORY SPECIALIST Amiodarone, Metoprolol
-Eliquis
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
Echo 08/04/2023-moderately reduced ejection fraction 40%. Global hypokinesis. Aortic sclerosis without stenosis. Moderate AI
When able to take oral-->on metoprolol, torsemide as outpatient
-Resumed metoprolol
-on Diuresis
# Diabetes-was on metformin thousand twice daily
Restarted then held
Hemoglobin A1c 7.6
Also added Prandin before meals, then held as sugars were low
with regular diet her sugars are high and ADA diet low
Will change back to ADA again
Restarted Metformin
# VANESSA
Unclear if she has CKD
Likely not
Better
#Stage 2 PI Sacrum
Left medial antecub skin tear

# Hypertension-On metoprolol
# Hyperlipidemia-Atorvastatin
# Patient is on prednisone for Bullous Pemphigoid
10 mg alternating with 5 mg every other day
resumed prednisone 20 (recommended dose given initiation methimazole)
# Pulmonary hypertension
# Valvular heart disease-moderate TR, moderate AI
# History of small bowel perforation with ex small bowel resection with primary anastomosis and abdominal washout February 2023
# Pulmonary hypertension
# Valvular heart disease-moderate TR, moderate AI
# Left upper extremity PICC line associated DVT in the past
# Ambulatory dysfunction-uses a walker
Spinal stenosis
# Migraines
# Hypoalbuminemia
# DVT prophylaxis-Lovenox now
# Full code
D/W at bed side
D/W Nursing
D/W case management
D/W re all the follow up needs
Discharge time 34 min
Anticipated Discharge: Today
Subjective/Interval History
-
Date of Service: September 11, 2023
Objective Data
-
Labs:
Laboratory Results
09/11/23
07:59
Sodium 131 L
Potassium 4.1
Chloride 100
Carbon Dioxide 29
BUN 15
Creatinine 0.7
Glucose 114 H
Calcium 8.9
Vital Signs:
Vital Signs
Temp Pulse Resp BP Pulse Ox
97.4 F 57 16 133/48 99
09/11/23 11:00 09/11/23 11:48 09/11/23 11:00 09/11/23 11:48 09/11/23 11:00
I&O
09/10/23 09/11/23 09/12/23
06:59 06:59 06:59
Intake Total 720 / 720 2159
Output Total 250 / 250
Balance 470 / 470 2159
--- NOTE | 2023-09-11 12:30 | W.DS.TRANS ---
Addendum entered and electronically signed by Jeff Encinas MD 09/11/23 14:32:
Dictation- [id number]
Original Note:
DC Summary - Wireline Operator
-
Discharge Instructions:
Sleep Apnea Risk Low
Discharge Diagnosis/Procedures Exploratory laparotomy, cecotomy and removal of
gallstone hyponatremia, SIADH, anemia,
hyperthyroidism, atrial fibrillation, CHF-with
reduced ejection fraction, diabetes, acute
kidney injury, stage II pressure injury sacrum,
hypertension, hyperlipidemia, bullous pemphigoid
, pulmonary hypertension, moderate TR, moderate
AI, migraines, ambulatory dysfunction, Lumbar
and cervical spine DJD
Diet Regular
Activity No strenuous activity
Additional Activity No heavy lifting or strenuous activities for 4
weeks post-operatively
Blood Work Thyroid function test in 1 week- Results to
[facility]. BMP 4 days,
Other Services PT,OT
Instructions:
Stand-Alone Forms:
Changes to Home Medications: Yes
Discharge Medications:
DC Medications w/original date entered in [facility]
metformin 1,000 mg tablet 1,000 mg PO BID@0800,1700 Diabetes 03/20/21
metoprolol succinate 50 mg tablet,extended release 24 hr 50 mg PO HS Heart Failure 03/20/21
atorvastatin 10 mg tablet 10 mg PO QPM High cholesterol #30 tabs 01/14/23
torsemide 20 mg tablet 20 mg PO DAILY Fluid retention/Swelling #30 tabs 01/14/23
apixaban 5 mg tablet (Eliquis) 2.5 mg PO BID Blood clot prevention/tx 08/27/23
potassium chloride 20 mEq tablet,extended release 20 meq PO DAILY Electrolyte Repletion 08/27/23
amiodarone 200 mg tablet (Pacerone) 200 mg PO DAILY Arrhythmia #0 tabs 09/11/23
bisacodyl 10 mg rectal suppository 10 mg OH DAILYPRN PRN constipation #0 ea 09/11/23
docusate sodium 100 mg capsule 100 mg PO BID Constipation #0 caps 09/11/23
insulin aspart U-100 100 unit/mL (3 mL) subcutaneous pen (Novolog FlexPen U-100 Insulin aspart) 0 unit (0 mL) SC AC Diabetes #0 mL 09/11/23
methimazole 5 mg tablet 20 mg (4 x 5 mg) PO DAILY hyperthyroidism #0 tabs 09/11/23
pantoprazole 40 mg tablet,delayed release 40 mg PO DAILY Gastrointestinal issue #0 tabs 09/11/23
polyethylene glycol 3350 17 gram oral powder packet (HealthyLax) 17 g PO DAILY Constipation #0 ea 09/11/23
prednisone 20 mg tablet 20 mg PO DAILY hyperthyroidism #0 tabs 09/11/23
Home Medication Changes
new
bisacodyl 10 mg rectal suppository 10 mg OH DAILYPRN PRN constipation #0 ea 09/11/23
docusate sodium 100 mg capsule 100 mg PO BID Constipation #0 caps 09/11/23
insulin aspart U-100 100 unit/mL (3 mL) subcutaneous pen (Novolog FlexPen U-100 Insulin aspart) 0 unit (0 mL) SC AC Diabetes #0 mL 09/11/23
methimazole 5 mg tablet 20 mg (4 x 5 mg) PO DAILY hyperthyroidism #0 tabs 09/11/23
pantoprazole 40 mg tablet,delayed release 40 mg PO DAILY Gastrointestinal issue #0 tabs 09/11/23
polyethylene glycol 3350 17 gram oral powder packet (HealthyLax) 17 g PO DAILY Constipation #0 ea 09/11/23
Dose change
prednisone 20 mg tablet 20 mg PO DAILY hyperthyroidism #0 tabs 09/11/23
Pending Results: No
[2023-09-11] MEDS: NOVOLOG FLEXPEN-LOW RESISTANCE 1 UNITS SC (12:50)
--- NOTE | 2023-09-11 14:39 | CM ---
Patient has been cleared for discharge today and bed is available at [facility], case management coordinator confirmed with Tatianna in admissions at [facility]. [employer] Auth provided to [facility], ambulance set up up for 4:45Pm, patient and spouse made aware of
discharge plan.
Plan; Patient to transfer to [facility] today
[facility]
Report# [phone] 4th floor
[2023-09-11 15:29] VITALS: BP 133/52
[2023-09-11] MEDS: LIPITOR 10 MG PO (17:18)
== END 2023-09-11 18:43 | DRG 330 ==
LOC: 4 WEST ACU 23:55
PROVIDERS: Emergency Medicine; Hospitalist; Physician Assistant; Student in an Organized Health Care Education/Training Program; Surgery; ADMITTING PHYSICIAN Internal Medicine; ATTENDING PHYSICIAN Hospitalist; CONSULT PHYSICIAN Internal Medicine Endocrinology, Diabetes & Metabolism; EMERGENCY PHYSICIAN Emergency Medicine; FAMILY PHYSICIAN Family Medicine
PROC: 0D9670Z Drainage of Stomach with Drainage Device, Via Natural or Artificial Opening (ICD-10-PCS; 2023-08-31)
PROC: 0DJD0ZZ Inspection of Lower Intestinal Tract, Open Approach (ICD-10-PCS; 2023-09-01)
PROC: 0DCH0ZZ Extirpation of Matter from Cecum, Open Approach (ICD-10-PCS; 2023-09-01)
PROC: 0DBH0ZZ Excision of Cecum, Open Approach (ICD-10-PCS; 2023-09-01)
DX: K56.3 Gallstone ileus (principal); D62 Acute posthemorrhagic anemia; K57.00 Diverticulitis of small intestine with perforation and abscess without bleeding; E22.2 Syndrome of inappropriate secretion of antidiuretic hormone; E44.0 Moderate protein-calorie malnutrition; K92.0 Hematemesis; I13.0 Hypertensive heart and chronic kidney disease with heart failure and stage 1 through stage 4 chronic kidney disease, or unspecified chronic kidney disease; I42.8 Other cardiomyopathies; I50.22 Chronic systolic (congestive) heart failure; J98.11 Atelectasis; L12.0 Bullous pemphigoid; K82.3 Fistula of gallbladder; N17.9 Acute kidney failure, unspecified; I48.0 Paroxysmal atrial fibrillation; E11.649 Type 2 diabetes mellitus with hypoglycemia without coma; E78.00 Pure hypercholesterolemia, unspecified; I27.20 Pulmonary hypertension, unspecified; E11.22 Type 2 diabetes mellitus with diabetic chronic kidney disease; N18.30 Chronic kidney disease, stage 3 unspecified; E87.6 Hypokalemia; R26.2 Difficulty in walking, not elsewhere classified; K66.0 Peritoneal adhesions (postprocedural) (postinfection); M41.9 Scoliosis, unspecified; E88.09 Other disorders of plasma-protein metabolism, not elsewhere classified; E83.42 Hypomagnesemia; K80.20 Calculus of gallbladder without cholecystitis without obstruction; I1A.0 Resistant hypertension; I08.2 Rheumatic disorders of both aortic and tricuspid valves; K59.00 Constipation, unspecified; E05.90 Thyrotoxicosis, unspecified without thyrotoxic crisis or storm; L89.152 Pressure ulcer of sacral region, stage 2; M47.812 Spondylosis without myelopathy or radiculopathy, cervical region; Z96.653 Presence of artificial knee joint, bilateral; Z79.52 Long term (current) use of systemic steroids; Z79.01 Long term (current) use of anticoagulants; Z79.84 Long term (current) use of oral hypoglycemic drugs; Z86.718 Personal history of other venous thrombosis and embolism; Z11.52 Encounter for screening for COVID-19; Z68.21 Body mass index [BMI] 21.0-21.9, adult
CPT/HCPCS: 88300; 70450; 70551; 72148; 74018; 74019; 74022; 74176; 80048; 80053; 81003; 81015; 82248; 82947; 82962; 83036; 83690; 83735; 83930; 83935; 84300; 84439; 84443; 85014; 85018; 85025; 85027; 85730; 86850; 86900; 86901; 87811; 96365; 96375; 97162; 97164; 97166; 97530; 97535; 99284